=== PATIENT | male | born 1960 | race Two or more races ===

== ENCOUNTER 2017-05-29 03:28 | Inpatient (IN) | payer MEDICAID, OTHER ==
[~2017-05-29] VITALS: Ht 167.6 cm; Wt 58.5 kg
--- NOTE | 2017-05-29 03:38 | NUR ---
PT [facility]IBA#81 FROM [facility], PT PER EMS HAD LOW O2 SATS X 1 DAY. PT ABLE TO MOUTH NEEDS / NOD TO YES AND NO QUESTIONS. RR EVEN AND UNLABORED. NO SOB NOTED. PT CONNECTED TO VENT WITH PRESCRIBED SETTINGS: AC 18 TV 450 FI02 70% PEEP 0. PT CURRENT 02 SAT 100%. PT NOTED WITH GTUBE INTACT AND PATENT. NO S/S INFECTION AND NO RESIDUAL NOTED. PT ALSO NOTED CONTRACTED WITH UPPER AND LOWER EXTEMITIES. DEFORMITY NOTED ON RIGHT WRIST. WOUNDS NOTED TO SACRUM AND LOWER BACK. PT NOTED WITH LA NENA PICC LINE COVERED WITH TEGADERM. CN AWARE. PT GOWNED AND PLACED ON MONITOR. DR KUMAR AT BEDSIDE FOR EVAL.
[2017-05-29] MEDS ORDERED: ALBUTEROL FS 2.5 MG/3 ML VIAL.NEB ONE (03:47)
[2017-05-29] MEDS ORDERED: IPRATROPIUM NEB FS 0.5 MG/2.5 ML AMPUL.NEB ONE (03:47)
[2017-05-29] MEDS ORDERED: ACETAMINOPHEN 650 MG/SUPP.RECT RC ONE ×2 (03:53→04:00)
[2017-05-29] MEDS ORDERED: IPRATROPIUM NEB FS 0.5 MG/2.5 ML AMPUL.NEB NEB ONE (04:00)
[2017-05-29] MEDS ORDERED: ALBUTEROL FS 2.5 MG/0.5 ML VIAL.NEB NEB ONE (04:00)
[2017-05-29] MEDS ORDERED: IV NS 0.9% 1,000 ML BAG IV ONE (04:00)
[2017-05-29 04:06] LABS: EOSINOPHILS # (AUTO) 0.1 /CMM (0.0-0.7); EOSINOPHILS % (AUTO) 0.4 % (0.0-6.0); HEMATOCRIT 30 % (39-51); HEMOGLOBIN 9.8 g/dL (13.5-17.5); LYMPHOCYTES # (AUTO) 0.8 /CMM (0.8-4.8); LYMPHOCYTES % (AUTO) 3.9 % (20.0-44.0); MEAN CORPUSCULAR HEMOGLOBIN 27 PG (26.0-33.0); MEAN CORPUSCULAR HGB CONC 32 g/dl (31.0-36.0); MEAN CORPUSCULAR VOLUME 84 fL (80-96); MONOCYTES # (AUTO) 0.9 /CMM (0.1-1.30); MONOCYTES % (AUTO) 4.3 % (2.0-12.0); NEUTROPHILS # (AUTO) 19.1 /CMM (1.8-8.9); NEUTROPHILS % (AUTO) 91.4 % (43.0-81.0); PLATELET COUNT (AUTO) 309 /CMM (150-450); RDW COEFFICIENT OF VARIATION 18.6 (11.5-15.0); RED BLOOD CELL COUNT(AUTO) 3.61 MIL/uL (4.5-6.0); WHITE BLOOD COUNT (AUTO) 20.9 K/uL (4.3-11.0)
--- NOTE | 2017-05-29 04:06 | NUR ---
RT AT BEDSIDE FOR BREATHING TX.
--- NOTE | 2017-05-29 04:10 | NUR ---
RADIOLOGY AT BEDSIDE FOR CXR
[2017-05-29 04:16] LABS: CALCIUM, SERUM 8.4 mg/dL (8.5-10.1); CARBON DIOXIDE 29 mmol/L (21-32); CHLORIDE 111 mmol/L (98-107); GLUCOSE 139 mg/dL (74-106); POTASSIUM 3.6 mmol/L (3.5-5.1); SODIUM SERUM 145 mmol/L (136-145); UREA NITROGEN, BLOOD 20 mg/dL (7-18)
[2017-05-29 04:24] LABS: TROPONIN I < 0.017 ng/mL (0.00-0.056)
[2017-05-29 04:27] LABS: ABG BASE EXCESS -0.2 mmol/L; ABG OXYGEN SATURATION 98.8 % (92.0-98.5); ABG PCO2 60.3 mmHg (35.0-45.0); ABG PH 7.274 (7.350-7.450); AaDO2 213.3 mmHg; COHb 0.3 % (0.5-1.5); MetHb 0.6 % (0.0-1.5); O2Hb 97.9 % (94.0-97.0); SITE, ABG Right Radial; VENT MODE, BG ac 18 450 70% +0
[2017-05-29 04:29] LABS: ALANINE AMINOTRANSFERASE 23 U/L (12-78); ALBUMIN 1.7 g/dL (3.4-5.0); ALKALINE PHOSPHATASE 93 U/L (46-116); ASPARTATE AMINOTRANSFERASE 17 U/L (15-37); B-TYPE NATRIURETIC PEPTIDE 1193 PG/ML (0-125); BILIRUBIN,DIRECT 0.1 mg/dL (0.0-0.2); BILIRUBIN,TOTAL 0.3 mg/dL (0.2-1.0); TOTAL PROTEIN, SERUM 7.1 g/dL (6.4-8.2)
[2017-05-29 04:32] VITALS: BP 115/73
--- NOTE | 2017-05-29 04:34 | NUR ---
RUIZ CATH 16FR PLACED PER MD ORDER. URINE COLLECTED. CALLED LAB FOR WEBBING SUPERVISOR
--- NOTE | 2017-05-29 04:35 | NUR ---
PT REC'D TRACHED ON NOTED [facility] VENT SETTINGS. SOB AND RESP DISTRESS NOTED.. SX LARGE WHITE SECRETIONS. TRACH IS MIDLINE AND SECURED. VENT PLUGGED INTO RED OUTLET. AMBU BAG BEDSIDE. ALARMS ARE SET AND AUDIBLE. WILL CONTINUE TO MONITOR. Addendum: 05/29/17 at 0609 by ORVILLE CONTRERAS RT Amended: Links added.
--- NOTE | 2017-05-29 04:40 | NUR ---
INCREASED RR 22, INCREASED FIO2 40% PER DR KUMAR Addendum: 05/29/17 at 0440 by ORVILLE CONTRERAS RT Amended: Links added.
--- NOTE | 2017-05-29 04:40 | NUR ---
DR. KUMAR MADE AWARE OF CURRENT BP. IVF TRANSFUSING.
[2017-05-29] MEDS ORDERED: AZTREONAM 1 G VIAL ONE (04:46)
[2017-05-29 04:53] LABS: INR 1.09 (0.87-1.13)
[2017-05-29] MEDS ORDERED: AZTREONAM 1 G in IV NS 0.9% 100 ML IV ONE (05:00)
[2017-05-29] MEDS ORDERED: LEVOFLOXACIN 750 MG /D5W 150ML PIGGYBACK IV ONE (05:00)
--- NOTE | 2017-05-29 05:01 | NUR ---
DR. KUMAR SPOKE TO HAYDE RUTHERFORD REGARDING RESULTS
[2017-05-29 05:06] LABS: LYMPHOCYTES % (MANUAL) 4 % (16-48); MONOCYTES % (MANUAL) 2 % (0-11.0); NEUTROPHILS % (MANUAL) 94 (42-76)
--- NOTE | 2017-05-29 05:07 | NUR ---
PT ASSIGNED TO TELE 112
[2017-05-29 05:10] LABS: APPEARANCE,URINE CLOUDY (CLEAR); BILIRUBIN,URINE NEGATIVE (NEGATIVE); BLOOD, URINE 3+ Ery/uL (NEGATIVE); COLOR,URINE YELLOW (YELLOW); KETONES,URINE NEGATIVE (NEGATIVE); LEUKOCYTE ESTERASE ,URINE 2+ (NEGATIVE); NITRITE, URINE NEGATIVE (NEGATIVE); PH,URINE 6.5 (5.0-8.0); PROTEIN,URINE 2+ mg/dl (NEGATIVE); UGLUCOSE NEGATIVE (NEGATIVE); UROBILINOGEN,URINE 0.2 EU/dL (0.2)
--- NOTE | 2017-05-29 05:14 | NUR ---
REPORT GIVEN TO ALFONSO ROBLES FOR NADIA. ENDORSED LEVAQUIN IVPB.
[2017-05-29] MEDS ORDERED: LEVOFLOXACIN 750 MG /D5W 150ML 150 ML IV ONE (05:16)
[2017-05-29] MEDS ORDERED: MAGN400O21 PO (05:21)
[2017-05-29] MEDS ORDERED: GABA-534 PO (05:21)
[2017-05-29] MEDS ORDERED: PANT40TA2 GT (05:21)
[2017-05-29] MEDS ORDERED: AMIK250V13 IJ (05:21)
[2017-05-29] MEDS ORDERED: BACL10TA GT (05:21)
[2017-05-29] MEDS ORDERED: MIDO5TAB PO (05:21)
[2017-05-29] MEDS ORDERED: POLY17PO4 GT (05:21)
[2017-05-29] MEDS ORDERED: TRAZ-144 GT (05:21)
[2017-05-29] MEDS ORDERED: BALS60OI TP (05:21)
[2017-05-29] MEDS ORDERED: HALO2TAB GT (05:21)
[2017-05-29] MEDS ORDERED: ASCO500T8 GT (05:21)
--- NOTE | 2017-05-29 05:27 | NUR ---
PT TRANSFERRED PER ACLS PROTOCOL.
[2017-05-29] MEDS ORDERED: MAGNESIUM HYDROXIDE 30 ML UDC PO PRN (05:30)
[2017-05-29] MEDS ORDERED: MAG HYDROX/AL HYDROX/SIMETH 30 ML UDC PO PRN (05:30)
[2017-05-29] MEDS ORDERED: Z GUARD REMEDY 2 OZ OINT TP PRN (05:30)
[2017-05-29 05:39] LABS: BACTERIA,URINE Few /HPF (None Seen); RBC,URINE 21-50 /HPF (0-2); SQUAMOUS EPITHELIAL CELL,UR Moderate /HPF (None Seen); WBC,URINE 21-50 /HPF (0-3)
--- NOTE | 2017-05-29 05:45 | NUR ---
SENIOR CLINICAL RESEARCH SCIENTIST NOTES RECEIVED PATIENT FROM ER VIA [facility], TRANSFERRED TO BED, TOLERATED WELL. PATIENT IS AWAKE, ALERT AND ORIENTED X1-2, NONVERBAL, ABLE TO NOD YES/NO. NOTED WITH DORA MARQUEZ #6 ON MECHANICAL VENT AT PRESCRIBED SETTINGS, TOLERATING WELL, SPO2 WNL, FREE FROM ANY S/S OF RESPIRATORY DISTRESS AT THIS TIME. GT PATENT AND INTACT, FLUSHED WITH 30 ML WATER. NOTED WITH LA NENA PICC, PRESENT SILK SCREEN PRINTING RACKER @ [facility], DRESSING CHANGED, ALL PORTYS FLUSHED AND NOTED WITH GOOD VENOUS RETURN. ALL SKIN/WOUND ISSUES PHOTGRAPHED AND DOCUMENTED PER PROTOCOL. WILL CONTINUE TO CLOSELY MONITOR THE PATIENT, AND ADMINISTER ALL DUE MEDS.
[2017-05-29 05:48] VITALS: BP 94/66
[2017-05-29] MEDS ORDERED: D5W IV ONE (06:00)
[2017-05-29] MEDS ORDERED: VANCOMYCIN IV ONE (06:00)
[2017-05-29] MEDS: IV NS 0.9% 1,000 ML IV PRN ×2 (06:14→23:12)
[2017-05-29] MEDS: HYDROCODONE/APAP 5/325MG 1 EACH TABLET PO PRN (06:31)
--- NOTE | 2017-05-29 07:00 | NUR ---
RN NOTES PATIENT RESTING IN BED, CONTINUES ON MECHANICAL VENT, WILL ENDORSE THE PATIENT TO THE AM SHIFT NURSE FOR NADIA
--- NOTE | 2017-05-29 07:22 | NUR ---
PT RECEIVED ON VENT SUPPORT VIA SHILEY TRACH SIZE #6DCT WITH BELLOW SETTINGS: AC 22 VT 450ML LGM164% NO PEEP BREATH SOUNDS COURSE RHONCHI BILATERAL. [facility] VENT IS PLUGGE INTO RED OUTLET WITH ALARMS ON AND AUDIBLE. CONSTANTINE @ HOB. Addendum: 05/29/17 at 0724 by EKATERINA LYNN RT Amended: Links added.
[2017-05-29] MEDS ORDERED: FEE PK DOSING 1 MIN EA MC ONE (07:31)
[2017-05-29 08:00] VITALS: BP 94/59
[2017-05-29] MEDS ORDERED: VANCOMYCIN 1 GM in IV D5W 250 ML IV SCH (08:00)
--- NOTE | 2017-05-29 08:40 | NUR ---
WOUND CARE CONSULT: PT PRESENTS WITH MULTIPLE WOUNDS PRESENT ON ADMISSION INCLUDING RT HIP UNSTAGEABLE ULCER, MIDBACK AND SACRAL STAGE 4 ULCERS. RT MEDIAL FOOT AND GREAT TOE OPEN WOUNDS, ALL PRESENT ON ADMISSION. PT HAS MULTIPLE SCARS INCLUDING LOWER LEGS, RT ANKLE AND LEFT DORSAL FOOT. ALL SKIN PROTECTION MEASURES IN PLACE AND DISCUSSED WITH NURSING STAFF. WOUND CARE RECOMMENDATIONS DISCUSSED WITH NURSING STAFF. WILL SEE PRN. RECOMMEND SURGICAL CONSULT. MD IN AGREEMENT WITH PLAN OF CARE. Addendum: 05/29/17 at 0842 by MARIN LEMA WNDNU Amended: Links added.
[2017-05-29] MEDS ORDERED: HYDROGEL DRESSING 90 GM TUBE TP PRN (09:00)
[2017-05-29] MEDS: HYDROGEL DRESSING 90 GM TUBE TP SCH (09:40)
--- NOTE | 2017-05-29 10:30 | NUR ---
RN KATH NOTE: CALLED AND SPOKE W/ SEVERO FROM [facility] WHERE THE PT RESIDES, AND ACCORDING TO HIM THE PATIENT DOES NOT HAVE ANY FAMILY INVOLVE ON HIS CARE. SHANITA MARMOLEJO IS A FRIEND LISTED ON THE FACESHEET.
[2017-05-29] MEDS: ALBUTEROL HALF STRENGTH 1.25 MG/3 ML VIAL.NEB NEB SCH ×5 (11:00→23:35)
[2017-05-29] MEDS: ACETYLCYSTEINE 10% SOLN 400 MG/4 ML VIAL NEB SCH ×3 (11:00→23:30)
[2017-05-29] MEDS: IPRATROPIUM NEB FS 0.5 MG/2.5 ML AMPUL.NEB NEB SCH ×4 (11:35→23:35)
--- NOTE | 2017-05-29 11:39 | NUR ---
VENT CHANGES BELLOW ORDER: VT 500 ML FIO2 30% SPO2 100% @ 30% FIO2 Addendum: 05/29/17 at 1141 by EKATERINA LYNN RT Amended: Links added.
[2017-05-29 12:00] VITALS: BP 91/66
--- NOTE | 2017-05-29 12:20 | NUR ---
1215 2ND CALL MADE TO ALFONSO LONDONO IN REGARDS TO CONSENT FOR THORACENTESIS STILL NOT SIGNED, UNABLE TO PROCEED AT THIS TIME WITH STAT THORACENTESIS THAT WAS ORDERED BY DR. HUTCHINS.
--- NOTE | 2017-05-29 12:20 | NUR ---
1115 PER ALFONSO LONDONO CONSENT NOT SIGNED. SHE WILL CONTACT ORDERING TO GET CONSENT SIGNED
--- NOTE | 2017-05-29 13:01 | NUR ---
RN KATH NOTE: VERIFIED W/ THE PATIENT THAT HE CONSENTED FOR THE ULTRASOUND GUIDED THORACENTESIS OF THE (L) LUNG. CONSENT WAS SIGNED AND WITNESSED BY 2 RN.
[2017-05-29] MEDS: AZTREONAM 2 G in IV NS 0.9% 100 ML IV SCH ×2 (13:10→21:24)
--- NOTE | 2017-05-29 13:36 | NUR ---
RN KATH NOTE: HILDA FROM RADIOLOGY DEPT. CAME AND DID THE ULTRASOUND ON THE PATIENT'S (L) LUNG. PER HILDA, SHE SPOKE W/ DR. PRATHER THAT THE PATIENT HAS LITTLE AMOUNT OF FLUID ON THE (L) LUNG. PER DR. PRATHER, HE WILL INFORM DR. HUTCHINS ABOUT IT. NO ULTRASOUND GUIDED THORACENTESIS OF THE (L) LUNG WAS DONE. PATIENT AWARE.
--- NOTE | 2017-05-29 14:54 | NUR ---
RN KATH NOTE: SPOKE WITH MAURA COBURN NP AND MADE HIM AWARE THAT THE PATIENT IS CURRENTLY NPO AT THIS TIME. PER GAS ENGINEER, OK TO RESUME THE PREVIOUS GT FEEDING AT THE OUTSIDE FACILITY (ISOSOURCE FORMULA), BUT AWAITING FOR THE DIETITIAN TO CALL BACK FOR THE EQUIVALENT FORMULA FOR THE PATIENT. MAURA MADE AWARE.
[2017-05-29] MEDS: HYDROCODONE/APAP 10/325MG 1 EA TABLET GT PRN ×2 (15:17→23:06)
[2017-05-29] MEDS ORDERED: LIDOCAINE 2% 20 ML MDV TP ONE (15:30)
[2017-05-29 16:00] VITALS: BP 92/56
--- NOTE | 2017-05-29 16:00 | NUR ---
RN KATH NOTE: PATIENT GAVE VERBAL CONSENT FOR THE WOUND DEBRIDEMENT. WITNESSED BY 2 RN AND SIGNED THE CONSENT.
[2017-05-29] MEDS: VANCOMYCIN 0.75 GM in IV NS 0.9% 250 ML IV SCH ×2 (16:29→23:06)
--- NOTE | 2017-05-29 18:22 | NUR ---
RN KATH NOTE: PER PHARMACY, THE EQUIVALENT FOR ISOSOURCE IS FIBERSOURCE. MAURA MANAGER CCU WAS AWARE AND GAVE ORDER TO START FIBERSOURCE @60CC/HR CONTINUOUS.
[2017-05-29] MEDS: FIBERSOURCE HN 1,000 ML BOTTLE GT PRN (18:41)
--- NOTE | 2017-05-29 19:52 | NUR ---
RN KATH NOTE: PATIENT IN BED, AWAKE, NODS HIS HEAD WHEN ANSWERING. INTERMITTENTLY SPEAK WELL. BUT MOST OF THE TIME NONVERBAL. DENIED PAIN. ON VENT-TRACH DEPENDENT. SATURATING 96%. WOUND TREATMENT DONE. RUIZ CATHETER REMAINED IN PLACED, PATENT AND DRAINING YELLOW URINE TO GRAVITY. (R) UA PICC LINE W/ 2 LUMENS AND (L) WRIST IV LINE REMAINED INTACT AND PATENT. GT FEEDING OF FIBERSOURCE @60CC/HR RUNNING AND TOLERATING IT. REPORT GIVEN TO PM SHIFT NURSE FOR CONTINUITY OF CARE.
[2017-05-29 20:00] VITALS: BP 96/58
--- NOTE | 2017-05-29 20:00 | NUR ---
RN INITIAL NOTE: RECEIVED PATIENT IN BED, AWAKE, NODS HIS HEAD WHEN ANSWERING. INTERMITTENTLY SPEAK WELL. BUT MOST OF THE TIME NONVERBAL. DENIED PAIN. ON VENT-TRACH DEPENDENT. SATURATING 96%. WOUND TREATMENT DONE. RUIZ CATHETER REMAINED IN PLACED, PATENT AND DRAINING YELLOW URINE TO GRAVITY. (R) UA PICC LINE W/ 2 LUMENS AND (L) WRIST IV LINE REMAINED INTACT AND PATENT. GT FEEDING OF FIBERSOURCE @60CC/HR RUNNING AND TOLERATING WELL. WILL CONT TO MONITOR.
[2017-05-30] VITALS: BP_SYST 87; BP_SYST 88; BP_DIAS 57; BP_DIAS 59
[2017-05-30] MEDS: IPRATROPIUM NEB FS 0.5 MG/2.5 ML AMPUL.NEB NEB SCH ×6 (03:35→23:48)
[2017-05-30] MEDS: ALBUTEROL HALF STRENGTH 1.25 MG/3 ML VIAL.NEB NEB SCH ×6 (03:35→23:48)
[2017-05-30 04:00] VITALS: BP 92/61
[2017-05-30] MEDS: AZTREONAM 2 G in IV NS 0.9% 100 ML IV SCH ×3 (04:52→20:34)
[2017-05-30] MEDS: LEVOFLOXACIN 750 MG /D5W 150ML 750 MG in PREMIX 1 EA IV SCH (05:00)
[2017-05-30] MEDS: FIBERSOURCE HN 1,000 ML BOTTLE GT PRN (05:23)
[2017-05-30] MEDS: HYDROCODONE/APAP 10/325MG 1 EA TABLET GT PRN (05:23)
--- NOTE | 2017-05-30 06:29 | NUR ---
RN CLOSING NOTE: PATIENT IN BED, AWAKE, NODS HIS HEAD WHEN ANSWERING. INTERMITTENTLY SPEAK WELL. BUT MOST OF THE TIME NONVERBAL. DENIED PAIN. ON VENT-TRACH DEPENDENT. SATURATING 96%. WOUND TREATMENT DONE. RUIZ CATHETER REMAINED IN PLACED, PATENT AND DRAINING YELLOW URINE TO GRAVITY. (R) UA PICC LINE W/ 2 LUMENS AND (L) WRIST IV LINE REMAINED INTACT AND PATENT. GT FEEDING OF FIBERSOURCE @60CC/HR RUNNING AND TOLERATING WELL. WILL CONT TO MONITOR.
[2017-05-30] MEDS: ACETYLCYSTEINE 10% SOLN 400 MG/4 ML VIAL NEB SCH ×3 (07:35→23:48)
--- NOTE | 2017-05-30 07:43 | NUR ---
KATH RN NOTE: PATIENT IN BED, AWAKE, NODS HIS HEAD WHEN ANSWERING.L. BUT MOST OF THE TIME NONVERBAL. DENIED PAIN. ON VENT-TRACH DEPENDENT. AMBU BAG AT HOB SATURATING 96%.DONE. RUIZ CATHETER PATENT AND DRAINING YELLOW URINE TO GRAVITY. (R) UA PICC LINE REMAINED INTACT AND PATENT. GT FEEDING OF FIBERSOURCE @60CC/HR RUNNING AND TOLERATING WELL. WILL CONT TO MONITOR. Addendum: 05/30/17 at 0756 by FARZANA ARROYO RN RT AT BEDSIDE , REFUSED BREATHING TX WILL NOTIFIED TO DR HUTCHINS
[2017-05-30 07:47] LABS: BASOPHILS % (AUTO) 0.3 % (0.0-2.0); EOSINOPHILS # (AUTO) 0.2 /CMM (0.0-0.7); EOSINOPHILS % (AUTO) 2.1 % (0.0-6.0); HEMATOCRIT 24 % (39-51); HEMOGLOBIN 7.7 g/dL (13.5-17.5); LYMPHOCYTES # (AUTO) 1.2 /CMM (0.8-4.8); LYMPHOCYTES % (AUTO) 12.6 % (20.0-44.0); MEAN CORPUSCULAR HEMOGLOBIN 27 PG (26.0-33.0); MEAN CORPUSCULAR HGB CONC 32 g/dl (31.0-36.0); MEAN CORPUSCULAR VOLUME 83 fL (80-96); MONOCYTES # (AUTO) 0.8 /CMM (0.1-1.30); MONOCYTES % (AUTO) 8.9 % (2.0-12.0); NEUTROPHILS # (AUTO) 7.2 /CMM (1.8-8.9); NEUTROPHILS % (AUTO) 76.1 % (43.0-81.0); PLATELET COUNT (AUTO) 256 /CMM (150-450); RDW COEFFICIENT OF VARIATION 18.6 (11.5-15.0); RED BLOOD CELL COUNT(AUTO) 2.87 MIL/uL (4.5-6.0); WHITE BLOOD COUNT (AUTO) 9.4 K/uL (4.3-11.0)
[2017-05-30 08:00] VITALS: BP 97/64
[2017-05-30] MEDS: VANCOMYCIN 0.75 GM in IV NS 0.9% 250 ML IV SCH ×2 (08:00→15:33)
[2017-05-30 08:04] LABS: CALCIUM, SERUM 7.6 mg/dL (8.5-10.1); CREATININE 0.5 mg/dL (0.6-1.3); MAGNESIUM 1.3 mg/dL (1.8-2.4); PHOSPHORUS 2.4 mg/dL (2.5-4.9); POTASSIUM 3.8 mmol/L (3.5-5.1)
[2017-05-30 08:11] LABS: THYROID STIMULATING HORMONE 3.574 uIU/mL (0.358-3.74)
[2017-05-30] MEDS: HYDROGEL DRESSING 90 GM TUBE TP SCH (08:46)
--- NOTE | 2017-05-30 08:47 | NUR ---
matheus rn note vanco level 21 will hold vancomycin, pharmacist aware
[2017-05-30 10:02] LABS: ABG BASE EXCESS 2.9 mmol/L; ABG OXYGEN SATURATION 93.5 % (92.0-98.5); ABG PCO2 44.2 mmHg (35.0-45.0); ABG PH 7.416 (7.350-7.450); ABG PO2 72.6 mmHg (75.0-100.0); AaDO2 89.4 mmHg; COHb 0.3 % (0.5-1.5); MetHb 0.6 % (0.0-1.5); O2Hb 92.7 % (94.0-97.0); PEEP,BG 0 cm H2O; SITE, ABG Left Brachial; VT, ABG 500 mL
[2017-05-30] MEDS: HYDROCODONE/APAP 5/325MG 1 EACH TABLET PO PRN ×2 (10:09→20:34)
[2017-05-30] MEDS: Magnesium 1GM/D5W 100ML PREMIX 100 ML IV SCH ×6 (12:30→18:30)
[2017-05-30 13:09] VITALS: BP 91/46
[2017-05-30] MEDS: ACETAMINOPHEN 325 MG TABLET PO PRN (13:30)
[2017-05-30] MEDS ORDERED: K PHOS NEUTRAL 250 MG TABLET PO ONE (14:00)
[2017-05-30] MEDS: LACTOBACILLUS RHAMNOSUS GG 1 EACH CAP.SPRINK GT SCH (17:02)
--- NOTE | 2017-05-30 17:07 | NUR ---
ARCHITECTURE MANAGER NOTE DR WRIGHT AT BEDSIDE DEBRIDEMENT ON SACRAL DONE ALSO PER PHARMACY OK TO GIVE VANCOMYCIN IV
[2017-05-30 17:08] VITALS: BP 90/60
[2017-05-30] MEDS ORDERED: IV NS 0.9% 500 ML IV ONE (18:30)
--- NOTE | 2017-05-30 18:40 | NUR ---
WEB SOFTWARE ENGINEER NOTE PATIENT NOTED STILL DIAPHORETIC BP 90/60 HR ON TELE MONITOR SR 86 ,SPOKE WITH DR MAURA COBURN DNP OK TO GIVEN BOLUS NS 500 ML , ORDER CARRIED OUT
[2017-05-30 20:00] VITALS: BP 87/59
--- NOTE | 2017-05-30 20:00 | NUR ---
RN INITIAL NOTE: RECEIVED PATIENT IN BED, AWAKE, NODS HIS HEAD WHEN ANSWERING. INTERMITTENTLY SPEAK WELL. BUT MOST OF THE TIME NONVERBAL. ON VENT-TRACH DEPENDENT. SATURATING 96%. WOUND TREATMENT DONE. RUIZ CATHETER REMAINED IN PLACED, PATENT AND DRAINING YELLOW URINE TO GRAVITY. (R) UA PICC LINE W/ 2 LUMENS AND (L) WRIST IV LINE REMAINED INTACT AND PATENT. GT FEEDING OF FIBERSOURCE @60CC/HR RUNNING AND TOLERATING WELL. WILL CONT TO MONITOR.
[2017-05-31] VITALS: BP 87/59
[2017-05-31] MEDS: HYDROCODONE/APAP 5/325MG 1 EACH TABLET PO PRN ×5 (02:00→21:27)
[2017-05-31] MEDS: VANCOMYCIN 0.75 GM in IV NS 0.9% 250 ML IV SCH ×2 (02:01→15:48)
[2017-05-31] MEDS: ALBUTEROL HALF STRENGTH 1.25 MG/3 ML VIAL.NEB NEB SCH ×6 (03:30→22:33)
[2017-05-31] MEDS: IPRATROPIUM NEB FS 0.5 MG/2.5 ML AMPUL.NEB NEB SCH ×6 (03:30→22:33)
[2017-05-31 04:00] VITALS: BP 84/54
[2017-05-31] MEDS: AZTREONAM 2 G in IV NS 0.9% 100 ML IV SCH ×3 (05:16→21:21)
[2017-05-31] MEDS: IV NS 0.9% 1,000 ML IV PRN ×2 (05:17→21:28)
[2017-05-31] MEDS: LEVOFLOXACIN 750 MG /D5W 150ML 750 MG in PREMIX 1 EA IV SCH (05:17)
[2017-05-31] MEDS: FIBERSOURCE HN 1,000 ML BOTTLE GT PRN (05:37)
--- NOTE | 2017-05-31 07:27 | NUR ---
RN CLOSING NOTE: PATIENT IN BED, AWAKE, NODS HIS HEAD WHEN ANSWERING. INTERMITTENTLY SPEAK WELL. BUT MOST OF THE TIME NONVERBAL. DENIED PAIN. ON VENT-TRACH DEPENDENT. SATURATING 96% RUIZ CATHETER REMAINED IN PLACED, PATENT AND DRAINING YELLOW URINE TO GRAVITY. (R) UA PICC LINE W/ 2 LUMENS. GT FEEDING OF FIBERSOURCE @60CC/HR RUNNING AND TOLERATING WELL. WILL ENDORSE TO AM RN.
[2017-05-31] MEDS: ACETYLCYSTEINE 10% SOLN 400 MG/4 ML VIAL NEB SCH ×3 (07:35→22:33)
--- NOTE | 2017-05-31 07:58 | NUR ---
RN NOTE (INITIAL) PATIENT RECEIVED ALERT AWAKE ORIENTED X 2. ON VENT-TRAC, SETTINGS TOLERATING WELL. NO BREATHING DIFFICULTY NOTED. ABLE TO MAKE NEEDS KNOWN. ON TELE MONITOR SINUS RHYTHM. DENIES DISCOMFORT. RIGHT UPPER ARM PICC LINE INTACT, RUNNING WITH IV FLUIDS. ABLE TO FLUSH WITHOUT DIFFICULTY. TUBE -FEEDING RUNNING TOLERATING WELL. ASPIRATION PRECAUTIONS/SAFETY MEASURES OBSERVED. CALL LIGHT WITHIN REACH. WILL CONTINUE TO MONITOR.
[2017-05-31 08:00] VITALS: BP 90/60
[2017-05-31 08:26] LABS: CALCIUM, SERUM 7.8 mg/dL (8.5-10.1); CREATININE 0.5 mg/dL (0.6-1.3); MAGNESIUM 1.7 mg/dL (1.8-2.4); POTASSIUM 4.4 mmol/L (3.5-5.1)
[2017-05-31] MEDS: LACTOBACILLUS RHAMNOSUS GG 1 EACH CAP.SPRINK GT SCH ×2 (08:46→17:04)
[2017-05-31] MEDS: HYDROGEL DRESSING 90 GM TUBE TP SCH (08:46)
[2017-05-31 12:00] VITALS: BP 88/63
[2017-05-31] MEDS: Magnesium 1GM/D5W 100ML PREMIX 100 ML IV SCH ×2 (13:31→14:33)
[2017-05-31 16:00] VITALS: BP 92/71
[2017-05-31 20:00] VITALS: BP 94/58
--- NOTE | 2017-05-31 20:00 | NUR ---
RN INITIAL NOTE: RECEIVED PATIENT IN BED, AWAKE, NODS HIS HEAD WHEN ANSWERING. INTERMITTENTLY SPEAK WELL. BUT MOST OF THE TIME NONVERBAL. ON VENT-TRACH DEPENDENT. SATURATING 96%. RUIZ CATHETER REMAINED IN PLACED, PATENT AND DRAINING YELLOW URINE TO GRAVITY. (R) UA PICC LINE W/ 2 LUMENS AND (L) WRIST IV LINE REMAINED INTACT AND PATENT. GT FEEDING OF FIBERSOURCE @60CC/HR RUNNING AND TOLERATING WELL. WILL CONT TO MONITOR.
[2017-06-01] VITALS: BP 114/66
[2017-06-01] MEDS: HYDROCODONE/APAP 5/325MG 1 EACH TABLET PO PRN ×2 (01:41→05:44)
[2017-06-01] MEDS: VANCOMYCIN 0.75 GM in IV NS 0.9% 250 ML IV SCH ×2 (03:08→15:24)
[2017-06-01] MEDS: ONDANSETRON HCL/PF 4 MG/2 ML VIAL IVP PRN ×2 (03:16→20:18)
[2017-06-01] MEDS: IPRATROPIUM NEB FS 0.5 MG/2.5 ML AMPUL.NEB NEB SCH ×6 (03:27→22:53)
[2017-06-01] MEDS: ALBUTEROL HALF STRENGTH 1.25 MG/3 ML VIAL.NEB NEB SCH ×6 (03:27→22:53)
[2017-06-01 04:00] VITALS: BP 93/63
[2017-06-01] MEDS: AZTREONAM 2 G in IV NS 0.9% 100 ML IV SCH ×3 (04:48→21:22)
[2017-06-01] MEDS: LEVOFLOXACIN 750 MG /D5W 150ML 750 MG in PREMIX 1 EA IV SCH (05:08)
[2017-06-01] MEDS: FIBERSOURCE HN 1,000 ML BOTTLE GT PRN (05:09)
--- NOTE | 2017-06-01 06:46 | NUR ---
RN CLOSING NOTE: NO SIGNIFICANT CHANGE IN PTS CONDITION OVER NIGHT. PATIENT IN BED, AWAKE, MOUTHING WORDS. COMPLAINS OF PAIN 10/10, PAIN MEDICATION GIVEN Q4H. ON VENT-TRACH DEPENDENT. SATURATING 96% RUIZ CATHETER REMAINED IN PLACED, PATENT AND DRAINING YELLOW URINE TO GRAVITY. (R) UA PICC LINE W/ 3 LUMENS. GT FEEDING OF FIBERSOURCE @60CC/HR RUNNING. ONE EMESIS OVER NIGHT. WILL ENDORSE TO AM RN.
[2017-06-01] MEDS: ACETYLCYSTEINE 10% SOLN 400 MG/4 ML VIAL NEB SCH ×3 (07:35→22:52)
[2017-06-01 08:00] VITALS: BP 85/57
--- NOTE | 2017-06-01 08:00 | NUR ---
KATH RN AM NOTE: RECEIVED PATIENT IN BED, AWAKE, NODS HIS HEAD WHEN ANSWERING. INTERMITTENTLY SPEAK WELL. BUT MOST OF THE TIME NONVERBAL. DENIED PAIN. ON VENT-TRACH DEPENDENT. SATURATING 96%. WOUND TREATMENT DONE. RUIZ CATHETER REMAINED IN PLACED, PATENT AND DRAINING YELLOW URINE TO GRAVITY. (R) UA PICC LINE W/ 2 LUMENS AND (L) WRIST IV LINE REMAINED INTACT AND PATENT. GT FEEDING OF FIBERSOURCE @60CC/HR RUNNING AND TOLERATING WELL.HOB KEPT ELEVATED. WILL CONT TO MONITOR.
[2017-06-01 08:29] LABS: EOSINOPHILS # (AUTO) 0.1 /CMM (0.0-0.7); EOSINOPHILS % (AUTO) 0.8 % (0.0-6.0); HEMATOCRIT 21 % (39-51); HEMOGLOBIN 7.2 g/dL (13.5-17.5); LYMPHOCYTES # (AUTO) 0.9 /CMM (0.8-4.8); LYMPHOCYTES % (AUTO) 5.3 % (20.0-44.0); MEAN CORPUSCULAR HEMOGLOBIN 28 PG (26.0-33.0); MEAN CORPUSCULAR HGB CONC 34 g/dl (31.0-36.0); MEAN CORPUSCULAR VOLUME 83 fL (80-96); MONOCYTES # (AUTO) 0.8 /CMM (0.1-1.30); MONOCYTES % (AUTO) 4.6 % (2.0-12.0); NEUTROPHILS # (AUTO) 15.5 /CMM (1.8-8.9); NEUTROPHILS % (AUTO) 89.3 % (43.0-81.0); PLATELET COUNT (AUTO) 292 /CMM (150-450); RDW COEFFICIENT OF VARIATION 18.7 (11.5-15.0); RED BLOOD CELL COUNT(AUTO) 2.59 MIL/uL (4.5-6.0); WHITE BLOOD COUNT (AUTO) 17.4 K/uL (4.3-11.0)
[2017-06-01 08:56] LABS: CALCIUM, SERUM 7.5 mg/dL (8.5-10.1); CREATININE 0.6 mg/dL (0.6-1.3); MAGNESIUM 1.8 mg/dL (1.8-2.4); POTASSIUM 4.1 mmol/L (3.5-5.1)
[2017-06-01] MEDS: LACTOBACILLUS RHAMNOSUS GG 1 EACH CAP.SPRINK GT SCH ×2 (09:01→17:41)
[2017-06-01] MEDS: HYDROGEL DRESSING 90 GM TUBE TP SCH (09:02)
[2017-06-01 12:00] VITALS: BP 98/59
[2017-06-01 16:00] VITALS: BP 109/61
[2017-06-01] MEDS: IV NS 0.9% 1,000 ML IV PRN (17:49)
--- NOTE | 2017-06-01 18:00 | NUR ---
PT RESTING IN BED WITH HOB ELEVATED AND GT FEEDING TOLERATED WELL WITH NO RESIDUALS AND NO VOMITING EPISODE.TURNED EVERY TWO HRS.
--- NOTE | 2017-06-01 19:21 | NUR ---
RCVD PT ON VENT WITH NOTED SETTINGS. BREATHING TX GIVEN PER MD'S ORDER, NO ADVERSE REACTION NOTED. SUCTIONED MODERATE AMOUNT OF YELLOWISH ALEJANDRE THICK SECRETIONS. VENT PLUGGED INTO RED OUTLET, VENT ALARM WORKING AND AUDIBLE. AMBU BAG AT BEDSIDE, WILL CONTINUE TO MONITOR THE PT.
--- NOTE | 2017-06-01 19:57 | NUR ---
INSURANCE ACCOUNT ASSISTANT NOTES RECEIVED ON BED,NON VERBAL.ON TRACH TO VENT AC-18,TV 500,FIO2-30%,PEEP-5,SHILEY #6 TOLERATED WELL.WITH RUIZ CATH IN PLACE DRAING YELLOWISH OUTPUT.WITH RIGHT UPPER PICC LINE FOR MEDS AND IV'S.DRESSING TO HIP AND SACRAL AREA INTACT AND DRY.WITH GT FEEDING OF FIBERSOURCE AT 60ML/HRRATE,TOLERATED WELL.NO RESIDUAL NOTED.REPOSITION PER PROTOCOL.WILL CONTINUE TO MONITOR STATUS.
[2017-06-01 20:00] VITALS: BP 118/58
--- NOTE | 2017-06-01 20:18 | NUR ---
BASKETBALL COMMENTATOR NOTES C/O VOMITING,ZOFRAN 4MG IV ADMINISTERED ORDERED.
[2017-06-01] MEDS: SULFAMETH/TRIMETH 800/160 MG 1 UDTAB TABLET PO SCH (21:22)
--- NOTE | 2017-06-01 23:47 | NUR ---
MS RN NOTES APPEARS HAVING NAUSEA,GIVEN MAALOX 30ML/GT ORDERED FOR DYSPEPSIA.
[2017-06-02] VITALS: BP 94/54
[2017-06-02] MEDS: VANCOMYCIN 0.75 GM in IV NS 0.9% 250 ML IV SCH ×2 (01:24→15:55)
[2017-06-02] MEDS: HYDROCODONE/APAP 5/325MG 1 EACH TABLET PO PRN ×2 (01:30→21:48)
--- NOTE | 2017-06-02 01:30 | NUR ---
PROJ MGR NOTES MOSOFY,ASKING FOR PAIN PILL,NORCO 5/325MG,1TAB GIVEN VIA GT.
[2017-06-02] MEDS: IPRATROPIUM NEB FS 0.5 MG/2.5 ML AMPUL.NEB NEB SCH ×6 (03:30→23:23)
[2017-06-02] MEDS: ALBUTEROL HALF STRENGTH 1.25 MG/3 ML VIAL.NEB NEB SCH ×6 (03:30→23:23)
[2017-06-02 03:39] VITALS: BP 96/67
[2017-06-02] MEDS: ONDANSETRON HCL/PF 4 MG/2 ML VIAL IVP PRN ×3 (04:33→21:27)
--- NOTE | 2017-06-02 04:33 | NUR ---
RN CVOR NOTES VOMITED GREENISH VOMITUS,MODERATE AMOUNT,ZOFRAN 4MG IV GIVEN.KEPT HOB ELEVATED FOR ASPIRATION PRECAUTION
[2017-06-02] MEDS: AZTREONAM 2 G in IV NS 0.9% 100 ML IV SCH ×3 (04:37→21:24)
--- NOTE | 2017-06-02 04:45 | NUR ---
BYPRODUCTS SUPERVISOR NOTES GT FEEDING HELD AT THIS TIME DUE TO VOMITING.KEPT ON UPRIGHT POSITION.IV ABX TOLERATED WELL.NOT IN ANY FORM OF DISTRESS.WILL ENDORSE TODAY NURSE FOR NADIA.
--- NOTE | 2017-06-02 07:00 | NUR ---
PRODUCT MARKETING MANAGER INITIAL NOTE REPORT RECEIVED AT THE BEDSIDE. PATIENT IS SITTING IN UPRIGHT POSITION AND FEEDING IS TURNED OFF. PER REPORT, PT HAS BEEN VOMITING. NO CURRENT SOB OR DISTRESS. PT IS REQUESTING NOT TO TURN ON FEEDING AGAIN AT THIS TIME. BED IN A LOW POSITION, CALL LIGHT WITHIN REACH. HEART RATE SINUS TACH AT 101.
[2017-06-02] MEDS: ACETYLCYSTEINE 10% SOLN 400 MG/4 ML VIAL NEB SCH ×3 (07:19→23:30)
[2017-06-02 07:31] LABS: BASOPHILS % (AUTO) 0.1 % (0.0-2.0); EOSINOPHILS # (AUTO) 0.1 /CMM (0.0-0.7); EOSINOPHILS % (AUTO) 0.9 % (0.0-6.0); HEMATOCRIT 26 % (39-51); HEMOGLOBIN 8.5 g/dL (13.5-17.5); LYMPHOCYTES # (AUTO) 0.9 /CMM (0.8-4.8); LYMPHOCYTES % (AUTO) 5.2 % (20.0-44.0); MEAN CORPUSCULAR HEMOGLOBIN 27 PG (26.0-33.0); MEAN CORPUSCULAR HGB CONC 33 g/dl (31.0-36.0); MEAN CORPUSCULAR VOLUME 83 fL (80-96); MONOCYTES # (AUTO) 1.1 /CMM (0.1-1.30); MONOCYTES % (AUTO) 6.5 % (2.0-12.0); NEUTROPHILS # (AUTO) 14.6 /CMM (1.8-8.9); NEUTROPHILS % (AUTO) 87.3 % (43.0-81.0); PLATELET COUNT (AUTO) 337 /CMM (150-450); WHITE BLOOD COUNT (AUTO) 16.8 K/uL (4.3-11.0)
[2017-06-02 07:49] LABS: CALCIUM, SERUM 7.5 mg/dL (8.5-10.1); CREATININE 0.6 mg/dL (0.6-1.3); MAGNESIUM 1.6 mg/dL (1.8-2.4); PHOSPHORUS 3.4 mg/dL (2.5-4.9)
[2017-06-02 08:00] VITALS: BP 86/50
[2017-06-02] MEDS: HYDROGEL DRESSING 90 GM TUBE TP SCH (08:21)
[2017-06-02] MEDS: LACTOBACILLUS RHAMNOSUS GG 1 EACH CAP.SPRINK GT SCH ×2 (08:21→16:54)
[2017-06-02] MEDS: SULFAMETH/TRIMETH 800/160 MG 1 UDTAB TABLET PO SCH (08:21)
--- NOTE | 2017-06-02 09:37 | NUR ---
RECEIVED A CALL FROM DR CLAIRE IN RADIOLOGY. STATES HE IS WORRIED ABOUT A PNEUMOTHORAX IN THIS PT. ASKS TO REPEAT THE CHEST XRAY. ORDER PLACED.
[2017-06-02] MEDS: Magnesium 1GM/D5W 100ML PREMIX 100 ML IV SCH ×2 (11:55→13:22)
[2017-06-02] MEDS: HYDROCODONE/APAP 10/325MG 1 EA TABLET GT PRN (11:55)
[2017-06-02 12:00] VITALS: BP 95/70
[2017-06-02] MEDS: IV NS 0.9% 1,000 ML IV PRN (12:01)
--- NOTE | 2017-06-02 14:50 | NUR ---
CALLED PHARMACY AND SPOKE TO DORINDA ABOUT PT MISSING IV VANCO. DORINDA STATES SHE IS SENDING THE MEDICATION.
--- NOTE | 2017-06-02 15:15 | NUR ---
PT STILL VOMITING AFTER GIVING ZOFRAN. INFORMED DR COBURN. STATES TO HOLD FEEDING FOR 5 HOURS AND THEN RESUME. NO NEW ORDERS FOR N/V MEDICATIONS.
--- NOTE | 2017-06-02 15:35 | NUR ---
CALLED PHARMACY PT [facility] IS STILL NOT ON FLOOR. DORINDA STATES THE TECH IS OUT DELIVERING THE MEDICATION.
[2017-06-02 16:00] VITALS: BP 88/59
[2017-06-02 20:00] VITALS: BP 99/71
--- NOTE | 2017-06-02 20:34 | NUR ---
CREATIVE CONSULTANT NOTES, RECEIVED PATIENT IN BED ALERT ALERT AND ORIENTED, ABLE TO LET NEEDS KNOW, MOUTH WORDS, ON VENT SETTINGS, NO SOB/ACUTE DISTRESS NOTED AT THIS TIME, NOTED DRY AND CLEAN, BED IN LOWEST POSITION, LA NENA MIDLINE INTACT AND PATENT, IVF RUNNING WELL AND PATIENT TOLERATED WELL, NO S/S OF INFILTRATION NOTED AT THIS TIME, GTF ON HOLD AT THIS TIME DUE TO EPISODES OF VOMITING, NO EPISODES NOTED AT THIS TIME, WILL RESTART ORDERED AND WILL CONTINUE TO MONITOR AND ADMINISTER ZOFRAN ORDERED, F/C IN PLACE DRAINING YELLOW URINE, NO HEMATURIA NOTED AT THIS TIME, CALL LIGHT W/I REACH, WILL CONTINUE TO MONITOR CLOSELY.
--- NOTE | 2017-06-02 22:05 | NUR ---
SPACE AND MISSILE OPERATIONS SPACELIFT NOTES, PATIENT NOTED WITH EPISODES OF GREENISH COLOR VOMITING, CALLED MD BURR FILER AND INFORMED ABOUT PATIENT CONDITION, PER MD TO DO A KUB STAT TO R/O BOWEL OBSTRUCTION, ORDER NOTED AND CARRIED OUT.
[2017-06-03] VITALS (9 sets, daily range): BP systolic 96–119; BP diastolic 56–67
--- NOTE | 2017-06-03 00:25 | NUR ---
APPLIED BEHAVIOR SCIENCE SPECIALIST NOTES, CALLED MD ER REGISTRAR AND RELAYED XR ABD AND REPLIED WITH NEW ORDER FOR LOW INTERMITTENT SUCTION AND CT SCAN W/O CONTRAST OF ABDOMEN AND PELVIS, ORDER NOTED AND CARRIED OUT.
[2017-06-03] MEDS: ONDANSETRON HCL/PF 4 MG/2 ML VIAL IVP PRN (01:03)
[2017-06-03] MEDS: VANCOMYCIN 0.75 GM in IV NS 0.9% 250 ML IV SCH ×2 (02:42→13:44)
[2017-06-03] MEDS: ALBUTEROL HALF STRENGTH 1.25 MG/3 ML VIAL.NEB NEB SCH ×6 (03:41→23:30)
[2017-06-03] MEDS: IPRATROPIUM NEB FS 0.5 MG/2.5 ML AMPUL.NEB NEB SCH ×6 (03:41→23:30)
[2017-06-03] MEDS: AZTREONAM 2 G in IV NS 0.9% 100 ML IV SCH ×3 (05:26→20:47)
[2017-06-03] MEDS: IV NS 0.9% 1,000 ML IV PRN ×2 (05:53→23:49)
--- NOTE | 2017-06-03 06:15 | NUR ---
RN CLOSING NOTED, PATIENT IN BED, ON VENT SETTINGS, SLEEPING AT THIS TIME, NO EPISODES OF VOMITING SINCE 0130 AM, ON LOW INTERMITTENT SUCTIONING, TRACHEAL SUCTIONING NEEDED FOR REMOVAL OF SECRETIONS, AWAITING FOR CT-SCAN WO CONTRAST FOR PELVIS AND ABDOMEN ORDERED, IVF INFUSING WELL AND PATIENT TOLERATED WELL, F/C DRAINING YELLOW URINE BY GRAVITY, PT DRY AND CLEAN, BED LOCKED AND IN LOWEST POSITION, CALL LIGHT W/I REACH, WILL ENDORSE TO NEXT SHIFT NURSE.
[2017-06-03] MEDS: ACETYLCYSTEINE 10% SOLN 400 MG/4 ML VIAL NEB SCH ×3 (07:35→23:29)
--- NOTE | 2017-06-03 07:50 | NUR ---
TELE/RN OPENING NOTE PATIENT IN BED IN STABLE CONDITION. A/O X 1, NON VERBAL, TRACH AND VENT DEPENDENT . TOLERATING WELL. ON TELE MONITOR NOTED WITH SINUS TACHY IN 100'S. ON LOW INTERMITTENT SUCTION VIA GTUBE SECONDARY TO PATIENT HAVING EPISODES OF VOMITING. G TUBE FEEDING ON HOLD TILL FURTHER ORDERS. ALL NEEDS ATTENDED TO. CALL LIGHT WITHIN REACH. WILL CONTINUE TO MONITOR TO ENSURE SAFETY.
[2017-06-03] MEDS: LACTOBACILLUS RHAMNOSUS GG 1 EACH CAP.SPRINK GT SCH ×2 (08:33→16:12)
[2017-06-03] MEDS: HYDROGEL DRESSING 90 GM TUBE TP SCH (08:35)
--- NOTE | 2017-06-03 09:22 | NUR ---
TRANSPORTED PT TO CT VIA VENT. NO DISTRESS NOTED DURING PROCEDURE. VENT PLUGGED INTO RED OUTLET POST TRANSPORT. NO ADVERSE EFFECTS OR SOB NOTED. Addendum: 06/03/17 at 0923 by JERMAN QUIÑONES RT Amended: Links added.
[2017-06-03 10:03] LABS: EOSINOPHILS % (AUTO) 0.1 % (0.0-6.0); HEMATOCRIT 28 % (39-51); HEMOGLOBIN 9.2 g/dL (13.5-17.5); LYMPHOCYTES # (AUTO) 0.9 /CMM (0.8-4.8); LYMPHOCYTES % (AUTO) 4.4 % (20.0-44.0); MEAN CORPUSCULAR HEMOGLOBIN 27 PG (26.0-33.0); MEAN CORPUSCULAR HGB CONC 33 g/dl (31.0-36.0); MEAN CORPUSCULAR VOLUME 82 fL (80-96); MONOCYTES # (AUTO) 1.1 /CMM (0.1-1.30); MONOCYTES % (AUTO) 5.7 % (2.0-12.0); NEUTROPHILS # (AUTO) 17.6 /CMM (1.8-8.9); NEUTROPHILS % (AUTO) 89.8 % (43.0-81.0); PLATELET COUNT (AUTO) 353 /CMM (150-450); RDW COEFFICIENT OF VARIATION 18.7 (11.5-15.0); RED BLOOD CELL COUNT(AUTO) 3.42 MIL/uL (4.5-6.0); WHITE BLOOD COUNT (AUTO) 19.6 K/uL (4.3-11.0)
[2017-06-03 10:29] LABS: CREATININE 0.7 mg/dL (0.6-1.3); MAGNESIUM 2.1 mg/dL (1.8-2.4); PHOSPHORUS 3.7 mg/dL (2.5-4.9)
--- NOTE | 2017-06-03 12:10 | NUR ---
TELE/RN SPOKE WITH DR LARSEN SPOKE WITH DR LARSEN AND MADE AWARE PATIENT NOTED WITH TEMP. OF 100.4, AFTER COOLING MEASURES NOTED 98.7. CURRENTLY G TUBE ON HOLD AND ON LOW INTERMITTENT SUCTION. RELAYED CT ABDOMEN/PELVIS RESULTS, WBC OF 19.0H. PER DR LARSEN, INCREASE IV FLUIDS TO NS @ 100MLS/HR. LACTIC ACID TODAY AND START MORPHINE 2MG IV Q 4 HR PRN FOR PAIN .
[2017-06-03] MEDS ORDERED: MORPHINE SULFATE INJ 2 MG/ML DISP.SYRIN IV PRN (12:30)
[2017-06-03] MEDS: HYDROMORPHONE INJ 0.5 MG/0.5 ML SYRINGE IV PRN (13:44)
--- NOTE | 2017-06-03 17:16 | NUR ---
TELE/RN DR LARSEN PAGED PAGED DR LARSEN TO MAKE AWARE PATIENT NOTED WITH TEMP. OF 100.1, COOLING MEASURES APPLIED, AND REQUESTING FOR TYLENOL SUPPOSITORY SECONDARY TO PATIENT G TUBE FEEDING AND MEDS ON HOLD. AWAITING FOR CALL BACK.
--- NOTE | 2017-06-03 18:30 | NUR ---
TELE/RN CLOSING NOTE PATIENT IN BED IN STABLE CONDITION. A/O X 1-2, NON VERBAL, ABLE TO MAKE SIMPLE NEEDS KNOWN VIA MOUTH WORDS. TRACH AND VENT DEPENDENT. TOLERATING WELL. ON TELE MONITOR WITH SINUS RHYTHM IN 80'S. G TUBE FEEDING ON HOLD, ON LOW INTERMITTENT SUCTION VIA G TUBE. NO SIGNS OF ACUTE DISTRESS. NO COMPLAIN OF PAIN OR DISCOMFORT. TEMP. NOTED 98.9 AFTER COOLING MEASURES. STILL WAITING FOR DR LARSEN TO RETURN CALL FOR ANY FURTHER ORDERS. ALL NEEDS ATTENDED TO. CALL LIGHT WITHIN REACH. WILL ENDORSE TO NEXT SHIFT FOR CONTINUITY OF CARE.
--- NOTE | 2017-06-03 19:30 | NUR ---
VEHICLE MAINTENANCE TECHNICIAN INITIAL NOTES, RECEIVED PATIENT IN BED, SLEEPING AT THIS TIME, ON VENT SETTINGS TOLERATED WELL, O2 SATURATION >94%, ABLE TO VERBALIZED NEEDS MOTH WORDS, GTF ON HOLD, NO EPISODES OF VOMITING AT THIS TIME, NO C/O NAUSEA, PAIN OR ANY DISCOMFORT, IVF INFUSING WELL AND PATIENT TOLERATED WELL, LA NENA PICC LINE INTACT ABND PATENT, F/C IN PLACE DRAINING YELLOW URINE PATENCY INTACT, PATIENT NOTED DRY AND CLEAN AT THIS TIME, BED LOCKED IN IN LOWEST POSITION, CALL LIGHT W/I REACH, SUCTIONING PROVIDED NEEDED, WILL CONTINUE TO MONITOR CLOSELY.
--- NOTE | 2017-06-03 19:43 | NUR ---
RCVD PT ON VENT WITH NOTED SETTINGS. BREATHING TX GIVEN PER MD'S ORDER, NO ADVERSE REACTION NOTED. SUCTIONED LARGE AMOUNT OF YELLOWISH ALEJANDRE THICK SECRETIONS. VENT PLUGGED INTO RED OUTLET, VENT ALARM WORKING AND AUDIBLE. AMBU BAG AT BEDSIDE, WILL CONTINUE TO MONITOR THE PT.
[2017-06-04] VITALS (8 sets, daily range): BP systolic 98–128; BP diastolic 56–78
[2017-06-04] MEDS: VANCOMYCIN 0.75 GM in IV NS 0.9% 250 ML IV SCH ×2 (02:42→15:52)
[2017-06-04] MEDS: ALBUTEROL HALF STRENGTH 1.25 MG/3 ML VIAL.NEB NEB SCH ×6 (03:26→23:53)
[2017-06-04] MEDS: IPRATROPIUM NEB FS 0.5 MG/2.5 ML AMPUL.NEB NEB SCH ×6 (03:26→23:53)
[2017-06-04] MEDS: AZTREONAM 2 G in IV NS 0.9% 100 ML IV SCH ×2 (05:29→14:14)
--- NOTE | 2017-06-04 06:30 | NUR ---
RN CLOSING NOTES, PATIENT SLEEPING IN BED, ON VENT SETTINGS, NO SOB/ACUTE DISTRESS, OR DISCOMFORT NOTED, NO C/O PAIN AT THIS TIME,. NO EPISODES OF VOMITING OR NAUSEA THROUGHOUT SHIFT, GTF ON HOLD AND NO MEDICATIONS ADMINISTERED VIA GT, CONTINUE ON LOW INTERMITTENT SUCTION VIA GT, IVF INFUSING WELL AND PATIENT TOLERATED WELL, LA NENA PICC LINE INTACT AND PATENT, F/C DRAINING YELLOW URINE, PATENCY INTACT, KEPT DRY AND CLEAN, ALL NEEDS PROVIDED AND ANTICIPATED, SUCTIONING PROVIDED NEEDED FOR THE REMOVAL OF SECRETIONS, BED LOCKED AND IN LOWEST POSITION, CA;LL LIGHT W/I REACH, WILL ENDORSE CONTINUITY OF CARE TO ONCOMING NURSE.
[2017-06-04 07:11] LABS: BASOPHILS % (AUTO) 0.1 % (0.0-2.0); EOSINOPHILS % (AUTO) 0.2 % (0.0-6.0); HEMATOCRIT 23 % (39-51); HEMOGLOBIN 7.6 g/dL (13.5-17.5); LYMPHOCYTES # (AUTO) 0.8 /CMM (0.8-4.8); LYMPHOCYTES % (AUTO) 4.2 % (20.0-44.0); MEAN CORPUSCULAR HEMOGLOBIN 27 PG (26.0-33.0); MEAN CORPUSCULAR HGB CONC 33 g/dl (31.0-36.0); MEAN CORPUSCULAR VOLUME 83 fL (80-96); MONOCYTES # (AUTO) 1.1 /CMM (0.1-1.30); MONOCYTES % (AUTO) 5.3 % (2.0-12.0); NEUTROPHILS # (AUTO) 17.9 /CMM (1.8-8.9); NEUTROPHILS % (AUTO) 90.2 % (43.0-81.0); PLATELET COUNT (AUTO) 290 /CMM (150-450); RDW COEFFICIENT OF VARIATION 18.3 (11.5-15.0); RED BLOOD CELL COUNT(AUTO) 2.78 MIL/uL (4.5-6.0); WHITE BLOOD COUNT (AUTO) 19.8 K/uL (4.3-11.0)
--- NOTE | 2017-06-04 07:20 | NUR ---
RN OPENING NOTES RECEIVED PATIENT IN BED,NON VERBAL.RESPIRATIONS ARE EVEN AND UNLABORED. NO ACUTE DISTRESS. VENT SUPPORT ON TRACH TO VENT AC-18,TV 500,FIO2-30%,SHILEY #6 TOLERATED WELL.WITH RUIZ CATH IN PLACE DRAINING YELLOW URINE. RIGHT UPPER PICC LINE PATENT AND INTACT GT SUCTIONING ON MEDIUM INTERMITTENT. COFFEE GROUND DRAINAGE NOTED. BED LOKCED IN THE LOWEST POSITION WITH SIDERAILS UP X2. WILL CONTINUE TO MONITOR, ASSESS AND EDUCATE PATIENT THROUGHOUT SHIFT.
[2017-06-04 07:26] LABS: CALCIUM, SERUM 7.7 mg/dL (8.5-10.1); CREATININE 0.7 mg/dL (0.6-1.3); MAGNESIUM 1.7 mg/dL (1.8-2.4); PHOSPHORUS 2.9 mg/dL (2.5-4.9); POTASSIUM 4.4 mmol/L (3.5-5.1)
[2017-06-04] MEDS: ACETYLCYSTEINE 10% SOLN 400 MG/4 ML VIAL NEB SCH ×3 (07:34→23:30)
[2017-06-04] MEDS: HYDROGEL DRESSING 90 GM TUBE TP SCH (09:44)
[2017-06-04] MEDS: LACTOBACILLUS RHAMNOSUS GG 1 EACH CAP.SPRINK GT SCH ×2 (09:44→18:28)
[2017-06-04] MEDS: Magnesium 1GM/D5W 100ML PREMIX 100 ML IV SCH ×2 (11:52→12:57)
--- NOTE | 2017-06-04 15:53 | NUR ---
MANUAL DISIMPACTION DONE WITH LARGE HARD STOOL OUTPUT,DR. ARANA NOTIFIED.
--- NOTE | 2017-06-04 18:00 | NUR ---
PT. REMAIN STABLE TRACHED PRINCESSLEY # 6 ON VENT CHANGES T/O DAY AND NO DISTRESS NOTED. B/S REMAIN RHONCHI AND SUX'D FOR LARGE AMT. YELLOWISH SECRETION. VENT ON RED OUT LET AND AMBU BAG REMAIN AT THE BEDSIDE. EXTRA TRACH AT THE BEDSIDE. Addendum: 06/04/17 at 1803 by RICHELLE MAZA RT Amended: Links added.
[2017-06-04] MEDS: METOCLOPRAMIDE HCL 10 MG/2 ML VIAL IV SCH ×2 (18:28→21:29)
[2017-06-04] MEDS: TRAZODONE 50 MG TABLET GT SCH (18:28)
[2017-06-04] MEDS: ACETAMINOPHEN 325 MG TABLET PO PRN (18:29)
--- NOTE | 2017-06-04 20:00 | NUR ---
RN CLOSING NOTES RECEIVED PATIENT IN BED,NON VERBAL.RESPIRATIONS ARE EVEN AND UNLABORED. NO ACUTE DISTRESS. VENT SUPPORT ON TRACH TO VENT AC-18,TV 500,FIO2-30%,SHILEY #6 TOLERATED WELL.WITH RUIZ CATH IN PLACE DRAINING YELLOW URINE. RIGHT UPPER PICC LINE PATENT AND INTACT GT SUCTIONING ON MEDIUM INTERMITTENT. COFFEE GROUND DRAINAGE NOTED. BED LOKCED IN THE LOWEST POSITION WITH SIDERAILS UP X2. ALL NEEDS MET ALL MEDS GIVEN APPROPRIATE. 800CC OF COFFEE GROUND SUCTION FROM GTUBE NOTED. WILL ENDORSE TO NIGHT RN FOR NADIA.
[2017-06-04] MEDS: MEROPENEM 500 MG in IV NS 0.9% 50 ML IV SCH (20:48)
[2017-06-04] MEDS: NA PHOS,M-B/NA PHOS,DI-BA 1 EA ENEMA RC SCH ×2 (21:29→22:00)
[2017-06-05] VITALS (7 sets, daily range): BP systolic 89–143; BP diastolic 48–78
[2017-06-05] MEDS: IPRATROPIUM NEB FS 0.5 MG/2.5 ML AMPUL.NEB NEB SCH ×6 (02:57→23:29)
[2017-06-05] MEDS: ALBUTEROL HALF STRENGTH 1.25 MG/3 ML VIAL.NEB NEB SCH ×8 (02:57→23:29)
[2017-06-05] MEDS: METOCLOPRAMIDE HCL 10 MG/2 ML VIAL IV SCH ×4 (03:11→20:49)
[2017-06-05] MEDS: VANCOMYCIN 0.75 GM in IV NS 0.9% 250 ML IV SCH (03:11)
[2017-06-05] MEDS: MEROPENEM 500 MG in IV NS 0.9% 50 ML IV SCH ×3 (04:37→20:49)
--- NOTE | 2017-06-05 06:30 | NUR ---
RN CLOSING NOTES, PATIENT AWAKE AT THIS TIME, ON VENT SETTINGS, ALERT AND ORIENTED , MOUTH WORDS ABLE TO COMMUNICATE NEEDS AND CONCERNS, ON VENT SETTINGS, CONT ON LOW INTERMITTENT SUCTIONING VIA GT, GTF CONTINUE ON HOLD, 2 EPISODES OF VOMITING LATE THIS MORNING, NO IVF AT THIS TIME, KEPT DRY AND CLEAN AT TALL TIMES, AND REPOSITION PROVIDED PER PROTOCOL, PICC IN LA NENA INTACT AND PATENT, F/C DRAINING YELLOW URINE, PATENCY INTACT, BED LOCKED AN DIN LOWEST POSITION, CALL LIGHT W/I REACH, WILL ENDORSE CONTINUITY OF CARE TO ONCOMING NURSE.
[2017-06-05 06:59] LABS: BASOPHILS % (AUTO) 0.1 % (0.0-2.0); EOSINOPHILS # (AUTO) 0.1 /CMM (0.0-0.7); EOSINOPHILS % (AUTO) 0.3 % (0.0-6.0); HEMATOCRIT 22 % (39-51); HEMOGLOBIN 7.3 g/dL (13.5-17.5); LYMPHOCYTES # (AUTO) 0.7 /CMM (0.8-4.8); LYMPHOCYTES % (AUTO) 3.6 % (20.0-44.0); MEAN CORPUSCULAR HEMOGLOBIN 28 PG (26.0-33.0); MEAN CORPUSCULAR HGB CONC 33 g/dl (31.0-36.0); MEAN CORPUSCULAR VOLUME 83 fL (80-96); MONOCYTES % (AUTO) 4.8 % (2.0-12.0); NEUTROPHILS # (AUTO) 18.6 /CMM (1.8-8.9); NEUTROPHILS % (AUTO) 91.2 % (43.0-81.0); PLATELET COUNT (AUTO) 408 /CMM (150-450); RDW COEFFICIENT OF VARIATION 18.8 (11.5-15.0); RED BLOOD CELL COUNT(AUTO) 2.66 MIL/uL (4.5-6.0); WHITE BLOOD COUNT (AUTO) 20.4 K/uL (4.3-11.0)
[2017-06-05] MEDS: ACETYLCYSTEINE 10% SOLN 400 MG/4 ML VIAL NEB SCH ×3 (07:26→23:27)
--- NOTE | 2017-06-05 07:26 | NUR ---
RT PT RECEIVED TRACHED ON THE VENT WITH NOTED SETTIGNS. PT IS AWAKE AND ALERT. VENT ALARMS ARE SET AND AUDIBLE WITH BVM BY BEDSIDE. SOA ENGINEER CUFF PRESSURE NOTED. VENT IS PLUGGED INTO RED OUTLET. NO RESPIRATORY DISTRESS NOTED AT THIS TIME, WILL CONTINUE TO MONITOR. Addendum: 06/05/17 at 1759 by INO PATE RT Amended: Links added.
[2017-06-05 07:35] LABS: CALCIUM, SERUM 7.9 mg/dL (8.5-10.1); CREATININE 0.7 mg/dL (0.6-1.3); MAGNESIUM 1.8 mg/dL (1.8-2.4); PHOSPHORUS 2.8 mg/dL (2.5-4.9); POTASSIUM 3.5 mmol/L (3.5-5.1)
--- NOTE | 2017-06-05 07:45 | NUR ---
RN NOTES RECEIVED PT FROM LABORATORY ANIMAL CARE VETERINARIAN, VENT/TRACH DEPENDENT, TOLERATING VENT SETTINGS NO SOB OR DISTRESS, A&0X1 ABLE TO MOUTH OF WORDS MAKE NEEDS KNOWN. RUIZ DRAINING TO GRAVITY. SR ON THE TELE LYNSEY HR 103. NO GTF, PT CURRENTLY NPO. LA NENA PICC LINE INTACT NO IVF. BED LOCKED AND IN LOWEST POSITION, CALL LIGHT WITHIN REACH, SIDE RAILS UPX3, WILL CONT TO [place].
[2017-06-05] MEDS: BACLOFEN (10 MG) 10 MG TABLET GT SCH ×3 (08:44→17:00)
[2017-06-05] MEDS: LACTOBACILLUS RHAMNOSUS GG 1 EACH CAP.SPRINK GT SCH ×2 (08:44→17:00)
[2017-06-05] MEDS: GABAPENTIN 300 MG CAPSULE PO SCH ×3 (08:45→17:00)
[2017-06-05] MEDS: HYDROGEL DRESSING 90 GM TUBE TP SCH (08:45)
[2017-06-05] MEDS: ACETAMINOPHEN 650 MG/SUPP.RECT RC PRN (14:34)
--- NOTE | 2017-06-05 15:00 | NUR ---
RN NOTES PER PHARMACY HOLD 1400 VANCO DOSE BUT GIVE 2100 DOSE.
[2017-06-05] MEDS: ONDANSETRON HCL/PF 4 MG/2 ML VIAL IVP PRN (15:35)
[2017-06-05] MEDS: TRAZODONE 50 MG TABLET GT SCH (17:26)
--- NOTE | 2017-06-05 19:30 | NUR ---
PAVING CONTRACTOR INITIAL NOTES RECEIVED PATIENT AWAKE, ALERT, ABLE TO MOUTH NEEDS. VENT DEPENDENT. NO RESPIRATORY DISTRESS NOTED. C/O SEVERE GENERALIZED PAIN. WITH GT IN PLACE, PATENT AND INTACT ON LOW INTERMITTENT SUCTION WITH DARK GREEN OUTPUT. F/C PATENT AND INTACT, DRAINING BY GRAVITY. ON TELE MONITOR ST 108. TURNED AND REPOSITIONED. HOB ELEVATED. SIDE RAILS UP AND LOCKED. BED KEPT AT LOWEST POSITION. CALL LIGHT KEPT WITHIN EASY REACH. WILL CONTINUE TO MONITOR.
[2017-06-05] MEDS: VANCOMYCIN 0.75 GM in IV D5W 250 ML IV SCH (20:47)
[2017-06-05] MEDS: HYDROMORPHONE INJ 0.5 MG/0.5 ML SYRINGE IV PRN (20:47)
[2017-06-05] MEDS ORDERED: METOCLOPRAMIDE HCL 10 MG/2 ML VIAL IV SCH (21:00)
[2017-06-05] MEDS: NA PHOS,M-B/NA PHOS,DI-BA 1 EA ENEMA RC SCH (21:42)
[2017-06-06] VITALS (8 sets, daily range): BP systolic 101–120; BP diastolic 60–72
--- NOTE | 2017-06-06 01:41 | NUR ---
PT RECEIVED TRACHED ON THE VENT WITH NOTED SETTIGNS. VENT ALARMS ARE SET AND AUDIBLE WITH BVM BY BEDSIDE. SOFTWARE ASSET MANAGER CUFF PRESSURE NOTED. VENT IS PLUGGED INTO RED OUTLET. NO RESPIRATORY DISTRESS NOTED AT THIS TIME, WILL CONTINUE TO MONITOR. Addendum: 06/06/17 at 0142 by THADDEUS LO RT Amended: Links added.
[2017-06-06] MEDS: METOCLOPRAMIDE HCL 10 MG/2 ML VIAL IV SCH ×4 (03:02→21:23)
[2017-06-06] MEDS: ALBUTEROL HALF STRENGTH 1.25 MG/3 ML VIAL.NEB NEB SCH ×6 (03:50→23:55)
[2017-06-06] MEDS: IPRATROPIUM NEB FS 0.5 MG/2.5 ML AMPUL.NEB NEB SCH ×6 (03:50→23:55)
[2017-06-06] MEDS: ACETAMINOPHEN 650 MG/SUPP.RECT RC PRN ×2 (05:12→11:09)
[2017-06-06] MEDS: MEROPENEM 500 MG in IV NS 0.9% 50 ML IV SCH ×3 (05:12→21:04)
--- NOTE | 2017-06-06 05:20 | NUR ---
BINDING CUTTER SYNTHETIC CLOTH NOTES NOTED PATIENT WITH ELEVATED TEMP 100.2, COOLING MEASURES RENDERED. PRN TYLENOL CO GIVEN. WILL CONTINUE TO MONITOR.
--- NOTE | 2017-06-06 06:00 | NUR ---
DYE WINCH OPERATOR NOTES RECHECKED TEMPERATURE 99.7. WILL CONTINUE TO MONITOR.
[2017-06-06 07:07] LABS: BASOPHILS % (AUTO) 0.1 % (0.0-2.0); EOSINOPHILS % (AUTO) 0.2 % (0.0-6.0); HEMATOCRIT 21 % (39-51); LYMPHOCYTES % (AUTO) 6.4 % (20.0-44.0); MEAN CORPUSCULAR HEMOGLOBIN 27 PG (26.0-33.0); MEAN CORPUSCULAR HGB CONC 33 g/dl (31.0-36.0); MEAN CORPUSCULAR VOLUME 83 fL (80-96); MONOCYTES # (AUTO) 0.9 /CMM (0.1-1.30); MONOCYTES % (AUTO) 5.9 % (2.0-12.0); NEUTROPHILS # (AUTO) 13.2 /CMM (1.8-8.9); NEUTROPHILS % (AUTO) 87.4 % (43.0-81.0); PLATELET COUNT (AUTO) 455 /CMM (150-450); RDW COEFFICIENT OF VARIATION 18.1 (11.5-15.0); RED BLOOD CELL COUNT(AUTO) 2.49 MIL/uL (4.5-6.0); WHITE BLOOD COUNT (AUTO) 15.1 K/uL (4.3-11.0)
[2017-06-06 07:29] LABS: CALCIUM, SERUM 7.7 mg/dL (8.5-10.1); CREATININE 0.9 mg/dL (0.6-1.3); MAGNESIUM 1.7 mg/dL (1.8-2.4); PHOSPHORUS 3.6 mg/dL (2.5-4.9); POTASSIUM 3.3 mmol/L (3.5-5.1)
[2017-06-06] MEDS: ACETYLCYSTEINE 10% SOLN 400 MG/4 ML VIAL NEB SCH ×3 (07:35→23:30)
[2017-06-06 07:43] LABS: HEMOGLOBIN 6.8 g/dL (13.5-17.5)
--- NOTE | 2017-06-06 07:47 | NUR ---
SENIOR MAINTENANCE MECHANIC CLOSING NOTES NO SIGNIFICANT CHANGES OVERNIGHT. PAIN MONITORED AND MANAGED. NEEDED. NO EPISODE OF EMESIS. NO RESPIRATORY DISTRESS NOTED. ALL NEEDS ANTICIPATED AND MET. TOLERATING CURRENT VENT SETTINGS. GT ON LOW INTERMITTENT SUCTION WITH DARK GREEN OUTPUT. PATIENT HAD BMX2. KEPT CLEAN AND DRY. TURNED AND REPOSITIONED Q2 AND PRN. WOUND TX PROVIDED. F/C PATENT AND INTACT, DRAINING BY GRAVITY. HOB KEPT ELEVATED. SIDE RAILS UP AND LOCKED. BED KEPT AT LOWEST POSITION. CALL LIGHT KEPT WITHIN EASY REACH. CONTINUITY OF CARE ENDORSED TO AM NURSE.
[2017-06-06 08:22] LABS: BAND % (MANUAL) 1 % (0.0-5.0); LYMPHOCYTES % (MANUAL) 6 % (16-48); MONOCYTES % (MANUAL) 6 % (0-11.0); NEUTROPHILS % (MANUAL) 87 (42-76)
[2017-06-06] MEDS: LACTOBACILLUS RHAMNOSUS GG 1 EACH CAP.SPRINK GT SCH ×2 (08:47→17:00)
[2017-06-06] MEDS: BACLOFEN (10 MG) 10 MG TABLET GT SCH ×3 (08:47→17:00)
[2017-06-06] MEDS: GABAPENTIN 300 MG CAPSULE PO SCH ×3 (08:48→17:00)
[2017-06-06] MEDS: HYDROGEL DRESSING 90 GM TUBE TP SCH (08:48)
--- NOTE | 2017-06-06 09:15 | NUR ---
RN NOTE SPOKE WITH HAYDE JUNIOR REGARDING THE LOW H/H/. NO NEW ORDERS AT THIS TIME, NO S/S OF BLEEDING. WILL MONITOR PT.
[2017-06-06] MEDS ORDERED: DIATR MEGLU/DIATRIZOATE SODIUM 120 ML BOTTLE (GASTROGRAPHIN) ONE ×2 (09:56→14:32)
[2017-06-06] MEDS: HYDROMORPHONE INJ 0.5 MG/0.5 ML SYRINGE IV PRN ×3 (11:15→21:04)
--- NOTE | 2017-06-06 11:54 | NUR ---
OBTAINED A GATHERING WORKER VIEW OF ABD ON PT @11:15AM PT REFUSED TO DO UGGER GI AND SBS @11:50AM I NOTIFIED ALFONSO RODRIGUEZ AND SHE CONFIRMED PT REFUSED SHE STATED SHE WILL COMMUNICATE WITH ON REFUSAL
[2017-06-06] MEDS ORDERED: Magnesium 1GM/D5W 100ML PREMIX 100 ML IV SCH (13:30)
[2017-06-06] MEDS: POTASSIUM CL. PREMIX PERIPHER. 50 ML IV SCH ×2 (13:45→14:41)
[2017-06-06] MEDS: IV D5/ 0.9% NACL 1,000 ML IV PRN (13:49)
[2017-06-06] MEDS: VANCOMYCIN 0.75 GM in IV D5W 250 ML IV SCH (16:04)
[2017-06-06] MEDS: TRAZODONE 50 MG TABLET GT SCH (17:40)
--- NOTE | 2017-06-06 19:30 | NUR ---
HYDROELECTRIC COMPONENT MACHINIST INITIAL NOTES RECEIVED PATIENT AWAKE, ABLE TO MOUTH NEEDS. PATIENT VENT DEPENDENT. C/O 10/10 GENERALIZED BODY PAIN. NO RESPIRATORY DISTRESS NOTED. DENIES N/V. RESPIRATIONS EVEN AND UNLABORED, WITH VENT SETTINGS AC 22, TV 500, FIO2 30%, PEEP 0. ON TELE MONITOR SR 85. SKIN WARM AND DRY TO TOUCH. WITH GT PATENT AND INTACT, IN PLACE, CLAMPED AT THIS TIME. PER REPORT NO SUCTION AT THIS TIME. PATIENT FOR SERIES OF SMALL BOWEL XRAYS. F/C PATENT AND INTACT, IN PLACE. HOB ELEVATED. SIDE RAILS UP AND LOCKED. BED KEPT AT LOWEST POSITION. CALL LIGHT KEPT WITHIN EASY REACH. WILL CONTINUE TO MONITOR.
--- NOTE | 2017-06-06 21:30 | NUR ---
CASH APPLICATIONS REPRESENTATIVE NOTES RADIOLOGY AT BEDSIDE FOR XRAY. PER RADIOLOGIST, KEEP PATIENT NPO AND NO GT SUCTION UP UNTIL DOCTOR VIEWS THE RESULTS OF THE XRAYS.
[2017-06-06] MEDS: NA PHOS,M-B/NA PHOS,DI-BA 1 EA ENEMA RC SCH (22:49)
[2017-06-07] VITALS (13 sets, daily range): BP systolic 102–128; BP diastolic 58–78
[2017-06-07] MEDS: METOCLOPRAMIDE HCL 10 MG/2 ML VIAL IV SCH ×4 (03:35→23:20)
[2017-06-07] MEDS: ALBUTEROL HALF STRENGTH 1.25 MG/3 ML VIAL.NEB NEB SCH ×6 (04:01→23:30)
[2017-06-07] MEDS: IPRATROPIUM NEB FS 0.5 MG/2.5 ML AMPUL.NEB NEB SCH ×6 (04:01→23:30)
[2017-06-07] MEDS: HYDROMORPHONE INJ 0.5 MG/0.5 ML SYRINGE IV PRN (04:09)
[2017-06-07] MEDS: MEROPENEM 500 MG in IV NS 0.9% 50 ML IV SCH ×3 (04:42→22:52)
--- NOTE | 2017-06-07 07:05 | NUR ---
RN NOTES RECEIVED PT ON BED, ALERT ,MOUTH WORDS, VENT/ TRACH DEPENDENT, NO SOB NOTED, TOLERATING CURRENT VENT SETTING WELL, ON TELE, SR ,HR IN 90'S , GT CLAMPED AT THIS TIME , PT IS NPO , RUIZ DRAINING TO GRAVITY , HOB ELEVATED, SR UPx3, CALL LIGHTS WITHIN EASY REACH, D5NS AT 50CC/HR RUNNING VIA R UPPER ARM PICC LINE , SITE CDI, SR UP x3, CALL LIGHT WITHIN EASY REACH, CONTINUE TO MONITOR . R
[2017-06-07 07:11] LABS: BASOPHILS % (AUTO) 0.1 % (0.0-2.0); EOSINOPHILS # (AUTO) 0.1 /CMM (0.0-0.7); EOSINOPHILS % (AUTO) 0.7 % (0.0-6.0); LYMPHOCYTES # (AUTO) 0.8 /CMM (0.8-4.8); LYMPHOCYTES % (AUTO) 9.3 % (20.0-44.0); MEAN CORPUSCULAR HEMOGLOBIN 27 PG (26.0-33.0); MEAN CORPUSCULAR HGB CONC 33 g/dl (31.0-36.0); MEAN CORPUSCULAR VOLUME 83 fL (80-96); MONOCYTES # (AUTO) 0.5 /CMM (0.1-1.30); MONOCYTES % (AUTO) 6.2 % (2.0-12.0); NEUTROPHILS # (AUTO) 7.2 /CMM (1.8-8.9); NEUTROPHILS % (AUTO) 83.7 % (43.0-81.0); PLATELET COUNT (AUTO) 464 /CMM (150-450); RDW COEFFICIENT OF VARIATION 18.2 (11.5-15.0); RED BLOOD CELL COUNT(AUTO) 2.31 MIL/uL (4.5-6.0); WHITE BLOOD COUNT (AUTO) 8.6 K/uL (4.3-11.0)
[2017-06-07 07:20] LABS: HEMATOCRIT 19 % (39-51); HEMOGLOBIN 6.3 g/dL (13.5-17.5)
[2017-06-07] MEDS: ACETYLCYSTEINE 10% SOLN 400 MG/4 ML VIAL NEB SCH ×3 (07:23→23:30)
[2017-06-07 07:25] LABS: CALCIUM, SERUM 7.5 mg/dL (8.5-10.1); CREATININE 0.8 mg/dL (0.6-1.3); MAGNESIUM 1.8 mg/dL (1.8-2.4); PHOSPHORUS 3.5 mg/dL (2.5-4.9); POTASSIUM 2.9 mmol/L (3.5-5.1)
[2017-06-07] MEDS: VANCOMYCIN 0.75 GM in IV D5W 250 ML IV SCH (08:11)
--- NOTE | 2017-06-07 08:11 | NUR ---
ENERGY SALES BROKER CLOSING NOTES NO SIGNIFICANT CHANGES OVERNIGHT. PAIN MONITORED AND MANAGED. NEEDED. NO EPISODE OF EMESIS. NO RESPIRATORY DISTRESS NOTED. ALL NEEDS ANTICIPATED AND MET. TOLERATING CURRENT VENT SETTINGS. GT CLAMPED. PATIENT HAD BMX2. KEPT CLEAN AND DRY. TURNED AND REPOSITIONED Q2 AND PRN. WOUND TX PROVIDED. F/C PATENT AND INTACT, DRAINING BY GRAVITY. HOB KEPT ELEVATED. SIDE RAILS UP AND LOCKED. BED KEPT AT LOWEST POSITION. CALL LIGHT KEPT WITHIN EASY REACH. CONTINUITY OF CARE ENDORSED TO AM NURSE.
[2017-06-07] MEDS: HYDROGEL DRESSING 90 GM TUBE TP SCH (08:40)
--- NOTE | 2017-06-07 09:00 | NUR ---
RN NOTES SANDI SPREADING MACHINE OPERATOR NOTIFIED REGARDING H/H 6.07/01 , NEW ORDER GIVEN
[2017-06-07 09:23] LABS: EOSINOPHILS % (MANUAL) 1 % (0-4); LYMPHOCYTES % (MANUAL) 15 % (16-48); MONOCYTES % (MANUAL) 5 % (0-11.0); NEUTROPHILS % (MANUAL) 79 (42-76)
--- NOTE | 2017-06-07 10:39 | NUR ---
RN NOTES ONE UNIT OF BLOOD STARTED, VSS STABLE , CONTINUE TO MONITOR .
[2017-06-07] MEDS: LACTOBACILLUS RHAMNOSUS GG 1 EACH CAP.SPRINK GT SCH ×2 (10:45→17:30)
[2017-06-07] MEDS: GABAPENTIN 300 MG CAPSULE PO SCH ×3 (10:45→17:30)
[2017-06-07] MEDS: BACLOFEN (10 MG) 10 MG TABLET GT SCH ×3 (10:45→17:30)
[2017-06-07] MEDS: ACETAMINOPHEN 325 MG TABLET PO PRN (10:45)
[2017-06-07] MEDS: POTASSIUM CL. PREMIX PERIPHER. 50 ML IV SCH ×6 (12:12→17:30)
--- NOTE | 2017-06-07 13:30 | NUR ---
RN NOTES ONE UNIT OF BLOOD COMPLETED, PT TOLERATED WELL. CONTINUE TO MONITOR.
[2017-06-07] MEDS: TRAZODONE 50 MG TABLET GT SCH (17:31)
--- NOTE | 2017-06-07 18:00 | NUR ---
RN NOTES RESPIRATION EVEN AND UNLABORED, PT STABLE D5NS AT 50CC/HR RUNNING VIA R UPPER ARM PICC LINE , NO DISTRESS NOTED, SR UP x3, WILL ENDORSE TO HOUSEHOLD APPLIANCE ASSEMBLER NURSE FOR NADIA.
[2017-06-07] MEDS ORDERED: FIBERSOURCE HN 1,000 ML BOTTLE GT SCH (18:30)
--- NOTE | 2017-06-07 20:00 | NUR ---
RN NOTES RECEIVED PATIENT AWAKE IN BED WITH NO DISTRESS NOTED. VENT SETTING WELL TOLERATED. NO COMPLAINT OF PAIN OR DISCOMFORT. ALERT AND ORIENTED. ABLE TO MOUTHWORDS NEEDS. GTUBE IN PLACE AND INTACT. FEEDING WELL TOLERATED. HOB ELEVATED. KEPT CLEAN AND DRY. WILL CONTINUE TO MONITOR.
[2017-06-07] MEDS: NA PHOS,M-B/NA PHOS,DI-BA 1 EA ENEMA RC SCH (22:44)
[2017-06-07] MEDS: IV D5/ 0.9% NACL 1,000 ML IV PRN (23:05)
[2017-06-07] MEDS ORDERED: METOCLOPRAMIDE HCL 10 MG/2 ML VIAL ONE (23:13)
[2017-06-08] VITALS: BP 114/72
[2017-06-08] MEDS: IPRATROPIUM NEB FS 0.5 MG/2.5 ML AMPUL.NEB NEB SCH ×6 (02:59→23:32)
[2017-06-08] MEDS: ALBUTEROL HALF STRENGTH 1.25 MG/3 ML VIAL.NEB NEB SCH ×6 (02:59→23:32)
[2017-06-08] MEDS: VANCOMYCIN 0.75 GM in IV D5W 250 ML IV SCH ×2 (03:18→20:22)
[2017-06-08] MEDS: METOCLOPRAMIDE HCL 10 MG/2 ML VIAL IV SCH (03:19)
[2017-06-08 04:00] VITALS: BP 118/66
[2017-06-08] MEDS: MEROPENEM 500 MG in IV NS 0.9% 50 ML IV SCH ×3 (05:01→20:55)
--- NOTE | 2017-06-08 06:33 | NUR ---
RN CLOSING NOTES PATIENT IN BED, RESTING COMFORTABLY WITH NO DISTRESS NOTED. NO DISTRESS NOTED. NO COMPLAINT OF PAIN OR DISCOMFORT. GT INTACT, FEEDING WELL TOLERATED. NO SIGNIFICANT CHANGE OF CONDITION, WILL ENDORSE TO AM SHIFT FOR CONTINUITY OF CARE
--- NOTE | 2017-06-08 07:00 | NUR ---
RN NOTES RECEIVED PATIENT ON BED, A/Ox3, ABLE TO MOUTH WORDS, VENT/ TRACH DEPENDENT, TRACH CARE DONE, TOLERATING CURRENT VENT SETTING WELL, ON TELE ST HR IN 100'S , G TUBE WITH , FIBERSOURCE AT 20CC/HR RUNNING , NO RESIDUAL NOTED, HOB ELEVATED. R UPPER ARM PICC LINE SITE CDI, WITH D5 NS AT 50CC/HR RUNNING , SR UP x3, BED LOCKED AND IN LOWEST POSITION , KEPT CLEAN AND DRY. WILL CONTINUE TO MONITOR.
[2017-06-08] MEDS: ACETYLCYSTEINE 10% SOLN 400 MG/4 ML VIAL NEB SCH ×3 (07:35→23:30)
[2017-06-08 07:36] LABS: BASOPHILS % (AUTO) 0.3 % (0.0-2.0); EOSINOPHILS # (AUTO) 0.1 /CMM (0.0-0.7); EOSINOPHILS % (AUTO) 0.6 % (0.0-6.0); HEMATOCRIT 23 % (39-51); HEMOGLOBIN 7.6 g/dL (13.5-17.5); LYMPHOCYTES % (AUTO) 10.6 % (20.0-44.0); MEAN CORPUSCULAR HEMOGLOBIN 28 PG (26.0-33.0); MEAN CORPUSCULAR HGB CONC 34 g/dl (31.0-36.0); MEAN CORPUSCULAR VOLUME 83 fL (80-96); MONOCYTES # (AUTO) 0.6 /CMM (0.1-1.30); MONOCYTES % (AUTO) 6.3 % (2.0-12.0); NEUTROPHILS # (AUTO) 7.6 /CMM (1.8-8.9); NEUTROPHILS % (AUTO) 82.2 % (43.0-81.0); PLATELET COUNT (AUTO) 449 /CMM (150-450); RDW COEFFICIENT OF VARIATION 17.5 (11.5-15.0); RED BLOOD CELL COUNT(AUTO) 2.71 MIL/uL (4.5-6.0); WHITE BLOOD COUNT (AUTO) 9.3 K/uL (4.3-11.0)
[2017-06-08] MEDS: METOCLOPRAMIDE HCL 10 MG/10 ML UDC GT SCH ×3 (07:52→17:01)
[2017-06-08 08:00] VITALS: BP 123/76
[2017-06-08] MEDS: ACETAMINOPHEN 325 MG TABLET PO PRN ×2 (08:00→20:22)
[2017-06-08] MEDS: BACLOFEN (10 MG) 10 MG TABLET GT SCH ×3 (08:00→17:01)
[2017-06-08] MEDS: LACTOBACILLUS RHAMNOSUS GG 1 EACH CAP.SPRINK GT SCH ×2 (08:00→17:01)
[2017-06-08] MEDS: GABAPENTIN 300 MG CAPSULE PO SCH ×3 (08:00→17:09)
[2017-06-08 08:01] LABS: CALCIUM, SERUM 7.5 mg/dL (8.5-10.1); CREATININE 0.7 mg/dL (0.6-1.3); MAGNESIUM 1.8 mg/dL (1.8-2.4); PHOSPHORUS 2.8 mg/dL (2.5-4.9); POTASSIUM 3.7 mmol/L (3.5-5.1)
[2017-06-08] MEDS: HYDROGEL DRESSING 90 GM TUBE TP SCH (08:01)
--- NOTE | 2017-06-08 08:14 | NUR ---
RN NOTES T=101.7, TYLENOL 650 GIVEN VIA GT , SANDI INSTRUMENT INSTALLER NOTIFIED , CONTINUE TO MONITOR.
[2017-06-08 08:17] LABS: IRON, SERUM 9 ug/dl (50-175); TOTAL IRON BINDING CAPACITY 126 ug/dl (250-450)
--- NOTE | 2017-06-08 10:00 | NUR ---
RN NOTES TF INCREASED TO 40CC/HR , PT TOLERATING WELL , CONTINUE TO MONITOR.
[2017-06-08 12:00] VITALS: BP 95/50
[2017-06-08 16:00] VITALS: BP 113/75
[2017-06-08] MEDS: TRAZODONE 50 MG TABLET GT SCH (17:01)
--- NOTE | 2017-06-08 17:50 | NUR ---
Pt tolerated current vent settings well. No changes made. Pt trach is secure. Vent is plugged into a red outlet, alarms are set and audible, and BVM is at bedside. Addendum: 06/08/17 at 1751 by JULIANA LEE RT Amended: Links added.
--- NOTE | 2017-06-08 18:09 | NUR ---
RN NOTES TRACH CARE DONE, RESPIRATION EVEN AND UNLABORED, NO SOB NOTED, FIBERSOURCE AT 40CC/HR RUNNING VIA GT , PT TOLERATING WELL, D5 NS AT 50 CC/HR RUNNING VIA R UPPER ARM PICC LINE , SR UP x3, CALL LIGHT WITHIN EASY REACH , WILL ENDORSE TO MAIL CENSOR NURSE FOR NADIA.
[2017-06-08] MEDS: HYDROCODONE/APAP 10/325MG 1 EA TABLET GT PRN (18:32)
[2017-06-08 20:00] VITALS: BP 95/58
--- NOTE | 2017-06-08 22:00 | NUR ---
RN NOTES RECEIVED PATIENT IN BED WITH NO DISTRESS NOTED. BREATHING EVEN AND UNLABORED. NOTED FEBRILE WITH TEMPERATURE OF 102.1. TYLENOL GIVEN 650MG. COOLING MEASURES PROVIDED. BED BATH ADMINISTERED. REPOSITION FOR COMFORT. AT 2100 TEMPERATURE WENT DOWN TO 100.1. CONTINUOUS COOLING MEASURES PROVIDED. GTUBE IN PLACE, NO LEAKING, NO RESIDUAL. FEEDING WELL TOLERATED. FC PATENT AND INTACT DRAINING CLEAR YELLOW WITH NO FOUL ODOR. KEPT CLEAN AND DRY. WILL CONTINUE TO MONITOR
[2017-06-08] MEDS: IV D5/ 0.9% NACL 1,000 ML IV PRN (23:14)
[2017-06-08] MEDS: NA PHOS,M-B/NA PHOS,DI-BA 1 EA ENEMA RC SCH (23:14)
[2017-06-09] VITALS: BP 98/54
[2017-06-09] MEDS: METOCLOPRAMIDE HCL 10 MG/10 ML UDC GT SCH ×4 (01:20→17:21)
[2017-06-09 04:00] VITALS: BP 105/56
[2017-06-09] MEDS: ALBUTEROL HALF STRENGTH 1.25 MG/3 ML VIAL.NEB NEB SCH ×6 (04:01→23:26)
[2017-06-09] MEDS: IPRATROPIUM NEB FS 0.5 MG/2.5 ML AMPUL.NEB NEB SCH ×6 (04:01→23:26)
[2017-06-09] MEDS: FIBERSOURCE HN 1,000 ML BOTTLE GT SCH (05:05)
[2017-06-09] MEDS: MEROPENEM 500 MG in IV NS 0.9% 50 ML IV SCH ×3 (05:05→22:29)
--- NOTE | 2017-06-09 06:19 | NUR ---
RN CLOSING NOTES LAST TEMP TAKEN 98.5. NO DISTRESS NOTED. BREATHING EVEN AND UNLABORED. WILL ENDORSE TO AM SHIFT FOR CONTINUITY OF CARE.
[2017-06-09] MEDS: ACETYLCYSTEINE 10% SOLN 400 MG/4 ML VIAL NEB SCH ×3 (07:35→23:30)
--- NOTE | 2017-06-09 07:39 | NUR ---
SPORTS MEDICINE TRAINER OPENING NOTES RECEIVED PT FROM NIGHTSORFT NURSE IN STABLE CONDITION. PT IS A/O X1-2. NO SOB OR SIGNS OF DISTRESS NOTED. BREATHING IS EVEN AND UNLABORED. PT IS TRACH/VENT DEPENDENT. VENT SETTINGS VERIFIED. PT TOLERATING SETTINGS WELL./ HE IS SINUS RHYTHM ON THE TELE MONITOR WITH OCCASIONAL PACS. RUIZ CATHETER NOTED TO BE DRAINING CLEAR YELLOW URINE. GTUBE NOTED TO BE PATENT AND INTACT. PLACEMENT VERIFIED VIA AUSCULTATION. FIBERSOURCE INFUSING ORDERED. PT TOLERATING FEEDING WELL. RIGHT UPPER ARM PICC LINE NOTED TO BE PATENT AND INTACT. PT IS RECEIVING D5NS @ 50ML/HR/ PT TOLERATING INFUSION WELL. NO REDNESS OR SIGNS OF INFILTRATION NOTED. BED IN LOW LOCKED POSITION, SIDE RAILS UP X3, CALL LIGHT WITHIN REACH, BED ALARM ON. WILL CONTINUE TO MONITOR.
[2017-06-09 08:00] VITALS: BP 100/57
[2017-06-09] MEDS: BACLOFEN (10 MG) 10 MG TABLET GT SCH ×3 (08:23→17:21)
[2017-06-09] MEDS: LACTOBACILLUS RHAMNOSUS GG 1 EACH CAP.SPRINK GT SCH ×2 (08:23→17:21)
[2017-06-09] MEDS: GABAPENTIN 300 MG CAPSULE PO SCH ×3 (08:23→17:21)
[2017-06-09] MEDS: HYDROGEL DRESSING 90 GM TUBE TP SCH (08:24)
[2017-06-09] MEDS: HYDROCODONE/APAP 10/325MG 1 EA TABLET GT PRN (11:19)
[2017-06-09 12:00] VITALS: BP 100/62
[2017-06-09 13:17] LABS: BASOPHILS # (AUTO) 0.1 /CMM (0.0-0.2); BASOPHILS % (AUTO) 0.9 % (0.0-2.0); EOSINOPHILS # (AUTO) 0.2 /CMM (0.0-0.7); EOSINOPHILS % (AUTO) 2.4 % (0.0-6.0); HEMATOCRIT 22 % (39-51); LYMPHOCYTES # (AUTO) 1.2 /CMM (0.8-4.8); LYMPHOCYTES % (AUTO) 13.5 % (20.0-44.0); MEAN CORPUSCULAR HEMOGLOBIN 27 PG (26.0-33.0); MEAN CORPUSCULAR HGB CONC 32 g/dl (31.0-36.0); MEAN CORPUSCULAR VOLUME 84 fL (80-96); MONOCYTES # (AUTO) 0.5 /CMM (0.1-1.30); MONOCYTES % (AUTO) 6.4 % (2.0-12.0); NEUTROPHILS # (AUTO) 6.6 /CMM (1.8-8.9); NEUTROPHILS % (AUTO) 76.8 % (43.0-81.0); PLATELET COUNT (AUTO) 408 /CMM (150-450); RED BLOOD CELL COUNT(AUTO) 2.61 MIL/uL (4.5-6.0); WHITE BLOOD COUNT (AUTO) 8.6 K/uL (4.3-11.0)
[2017-06-09 13:31] LABS: CREATININE 0.7 mg/dL (0.6-1.3); MAGNESIUM 1.7 mg/dL (1.8-2.4); PHOSPHORUS 3.3 mg/dL (2.5-4.9)
[2017-06-09] MEDS: VANCOMYCIN 0.75 GM in IV D5W 250 ML IV SCH (14:16)
--- NOTE | 2017-06-09 14:25 | NUR ---
FISHERIES OFFICER NOTES LAB CALLED IN REGARDS TO PT'S H/H. BRIAN THE SMALL BUSINESS BANKING OFFICER WAS MADE AWARE OF THE RESULTS ALONG WITH PT'S LOW MG. PER BRIAN "JUST MONITOR FOR NO BLEEDING AND GIVE 2G MAG". WILL CARRY OUT ORDERS
[2017-06-09] MEDS: Magnesium 1GM/D5W 100ML PREMIX PIGGYBACK IV SCH ×2 (15:23→16:43)
[2017-06-09 16:00] VITALS: BP 98/56
[2017-06-09] MEDS: TRAZODONE 50 MG TABLET GT SCH (17:21)
--- NOTE | 2017-06-09 18:27 | NUR ---
RT END OF THE SHIFT REPORT, PT. 56 Y OLD MALE REMAIN STABLE SINCE 0700 AWAKE, FOLLOWING COMMAND. TRACHED DORA # 6 ON MECHANICAL VENT, WITH NOTED SETTINGS. EQUAL CHEST RISE NOTED, TRACH IN GOOD POSITION AND SECURE. ANNIE VENT WELL T/O DAY B/S RHONCHI BILATERALLY AND SUX'D FOR MOD. AMT OF YELLOW SECRETIONS. TX'S GIVEN INLINE AND NO ADVERSE REACTION NOTED. VENT PLUGGED INTO RED OUTLET, AMBU BAG AT THE BEDSIDE. CONTINUE FOR CARE AND MONITORING, REPORT WILL PASS TO PM SHIFT. Addendum: 06/09/17 at 1829 by RICHELLE MAZA RT Amended: Links added.
--- NOTE | 2017-06-09 18:44 | NUR ---
BIOLOGY FACULTY MEMBER CLOSING NOTES PT REMAINS IN STABLE. NO ACUTE CHANGES IN CONDITION DURING SHIFT, WOUND AND SKIN CARE RENDERED ORDERED. VITALS STABLE AT THIS TIME. WILL ENDORSE TO NIGHTSHIFT NURSE FOR NADIA
[2017-06-09 20:00] VITALS: BP 116/65
[2017-06-09] MEDS: NA PHOS,M-B/NA PHOS,DI-BA 1 EA ENEMA RC SCH (22:29)
[2017-06-10] VITALS (11 sets, daily range): BP systolic 93–124; BP diastolic 37–79
[2017-06-10] MEDS: METOCLOPRAMIDE HCL 10 MG/10 ML UDC GT SCH ×5 (01:20→23:35)
[2017-06-10] MEDS: ALBUTEROL HALF STRENGTH 1.25 MG/3 ML VIAL.NEB NEB SCH ×7 (02:55→23:30)
[2017-06-10] MEDS: IPRATROPIUM NEB FS 0.5 MG/2.5 ML AMPUL.NEB NEB SCH ×7 (02:55→23:30)
[2017-06-10] MEDS: MEROPENEM 500 MG in IV NS 0.9% 50 ML IV SCH ×3 (05:54→21:22)
[2017-06-10 07:34] LABS: BASOPHILS % (AUTO) 0.2 % (0.0-2.0); EOSINOPHILS # (AUTO) 0.2 /CMM (0.0-0.7); EOSINOPHILS % (AUTO) 2.9 % (0.0-6.0); HEMATOCRIT 21 % (39-51); LYMPHOCYTES % (AUTO) 12.4 % (20.0-44.0); MEAN CORPUSCULAR HEMOGLOBIN 27 PG (26.0-33.0); MEAN CORPUSCULAR HGB CONC 32 g/dl (31.0-36.0); MEAN CORPUSCULAR VOLUME 85 fL (80-96); MONOCYTES # (AUTO) 0.4 /CMM (0.1-1.30); MONOCYTES % (AUTO) 5.1 % (2.0-12.0); NEUTROPHILS # (AUTO) 6.3 /CMM (1.8-8.9); NEUTROPHILS % (AUTO) 79.4 % (43.0-81.0); PLATELET COUNT (AUTO) 384 /CMM (150-450); RDW COEFFICIENT OF VARIATION 18.7 (11.5-15.0); RED BLOOD CELL COUNT(AUTO) 2.43 MIL/uL (4.5-6.0)
[2017-06-10] MEDS: ACETYLCYSTEINE 10% SOLN 400 MG/4 ML VIAL NEB SCH ×3 (07:35→23:30)
[2017-06-10 07:54] LABS: HEMOGLOBIN 6.6 g/dL (13.5-17.5)
--- NOTE | 2017-06-10 08:00 | NUR ---
tele railroad dispatcher: notes won gill ([facility]) lining ironer notified re: hgb 6.6. and hct 21 with no new order. cn aware. will continue to monitor.
[2017-06-10 08:06] LABS: CREATININE 0.7 mg/dL (0.6-1.3); MAGNESIUM 2.1 mg/dL (1.8-2.4); PHOSPHORUS 3.3 mg/dL (2.5-4.9)
[2017-06-10] MEDS: BACLOFEN (10 MG) 10 MG TABLET GT SCH ×3 (08:47→17:41)
[2017-06-10] MEDS: LACTOBACILLUS RHAMNOSUS GG 1 EACH CAP.SPRINK GT SCH ×2 (08:47→17:41)
[2017-06-10] MEDS: GABAPENTIN 300 MG CAPSULE PO SCH ×3 (08:47→17:41)
[2017-06-10] MEDS: VANCOMYCIN 0.75 GM in IV D5W 250 ML IV SCH (08:57)
[2017-06-10] MEDS: HYDROGEL DRESSING 90 GM TUBE TP SCH (08:58)
--- NOTE | 2017-06-10 09:23 | NUR ---
tele cook's assistant: notes called pt [facility], spoke to redd (cook's assistant) and informed me that his picc line was inserted on the May at [facility] and unable to provide update on his immunization records at this time.
[2017-06-10 09:56] LABS: EOSINOPHILS % (MANUAL) 2 % (0-4); LYMPHOCYTES % (MANUAL) 7 % (16-48); NEUTROPHILS % (MANUAL) 91 (42-76)
--- NOTE | 2017-06-10 13:04 | NUR ---
mir maysn: md visit seen and examined by won gill ([facility]) with new orders. orders acknowledged. pt need 1 unit of prbc. pt made aware. pt has already a consent for blood transfusion on the . will continue to monitor. Addendum: 06/10/17 at 1644 by SAUNDRA FERNANDEZ LVN pt had episode of emesis (small amount of feeding formula) and [facility] made aware.
[2017-06-10] MEDS: HYDROCODONE/APAP 5/325MG 1 EACH TABLET PO PRN (13:16)
--- NOTE | 2017-06-10 13:16 | NUR ---
tele assistant project engineer: notes c/o 10/22 lower back pain, medicated with norco 5/325mg po as ordered. instructed to call for assistance. will continue to monitor.
[2017-06-10] MEDS: SOD FERRIC GLUC 125 MG in IV NS 0.9% 100 ML IV SCH (14:06)
--- NOTE | 2017-06-10 14:16 | NUR ---
tele tester electronic scale: notes turned and repositioned. tx done to wounds as ordered. verbalized some relief of pain. seen by dr. haq (heel cover softener) at this time. instructed to call for assistance. will continue to monitor.
--- NOTE | 2017-06-10 15:30 | NUR ---
tele literacy coordinator: notes blood transfusion (prbc) started at this time. vss. afebrile. will continue to monitor.
--- NOTE | 2017-06-10 15:45 | NUR ---
tele transplanter: notes no a/r noted after 15mins of transfusion. will continue to monitor.
--- NOTE | 2017-06-10 16:00 | NUR ---
tele pullman car clerk: notes no a/r noted after 30 mins of transfusion. vss, afebrile. will continue to monitor.
--- NOTE | 2017-06-10 16:30 | NUR ---
tele head athletic trainer/strength coach: notes blood still infusing without a/r noted. vss remains stable, afebrile. will continue to monitor.
--- NOTE | 2017-06-10 17:00 | NUR ---
tele senior training specialist: notes noted pt vomit mod amount of feeding, pt is on reglan 10mg q 6hours. dr. monroe notified and made aware with no new order.
[2017-06-10] MEDS: TRAZODONE 50 MG TABLET GT SCH (17:41)
--- NOTE | 2017-06-10 18:00 | NUR ---
tele band scroll saw operator: notes blood still infusing without a/r noted. vss; afebrile. will continue to monitor.
--- NOTE | 2017-06-10 18:16 | NUR ---
RT END OF THE SHIFT REPORT, PT. 56 Y OLD MALE REMAIN STABLE SINCE REC. 0700 AM. AWAKE, AND FOLLOWING COMMAND. ALMA'D DORA # 6 ON MECHANICAL VENT, WITH NOTED SETTINGS. EQUAL CHEST RISE NOTED, TRACH IN GOOD POSITION AND SECURE. HME CHANGED ANNIE VENT WELL T/O DAY B/S RHONCHI BILATERALLY AND SUX'D FOR SMALL AMT OF WHITE SECRETIONS. TX'S GIVEN INLINE NO ADVERSE REACTION NOTED. VENT PLUGGED INTO RED OUTLET, AMBU BAG AT THE BEDSIDE. CONTINUE FOR CARE AND MONITORING, REPORT WILL PASS TO PM SHIFT Addendum: 06/10/17 at 1817 by RICHELLE MAZA RT Amended: Links added.
--- NOTE | 2017-06-10 18:30 | NUR ---
tele outbound sales advisor: notes blood transfusion completed without a/r noted. needs attended. vss; afebrile. will continue to monitor.
[2017-06-10] MEDS: NA PHOS,M-B/NA PHOS,DI-BA 1 EA ENEMA RC SCH (21:22)
[2017-06-11] VITALS: BP_SYST 120; BP_DIAS 7; BP_DIAS 73
[2017-06-11] MEDS: VANCOMYCIN 0.75 GM in IV D5W 250 ML IV SCH (01:23)
[2017-06-11] MEDS: FIBERSOURCE HN 1,000 ML BOTTLE GT SCH (01:40)
[2017-06-11] MEDS: IV D5/ 0.9% NACL 1,000 ML IV PRN (03:50)
[2017-06-11 04:00] VITALS: BP 124/77
[2017-06-11] MEDS: ALBUTEROL HALF STRENGTH 1.25 MG/3 ML VIAL.NEB NEB SCH ×4 (04:26→15:09)
[2017-06-11] MEDS: IPRATROPIUM NEB FS 0.5 MG/2.5 ML AMPUL.NEB NEB SCH ×4 (04:26→15:09)
[2017-06-11] MEDS: METOCLOPRAMIDE HCL 10 MG/10 ML UDC GT SCH ×3 (05:40→18:00)
[2017-06-11] MEDS: MEROPENEM 500 MG in IV NS 0.9% 50 ML IV SCH ×2 (05:40→12:05)
[2017-06-11 06:35] LABS: CALCIUM, SERUM 7.4 mg/dL (8.5-10.1); CREATININE 0.7 mg/dL (0.6-1.3); POTASSIUM 4.2 mmol/L (3.5-5.1)
[2017-06-11 06:39] LABS: BASOPHILS % (AUTO) 0.2 % (0.0-2.0); EOSINOPHILS # (AUTO) 0.2 /CMM (0.0-0.7); HEMATOCRIT 25 % (39-51); HEMOGLOBIN 8.3 g/dL (13.5-17.5); LYMPHOCYTES # (AUTO) 0.8 /CMM (0.8-4.8); LYMPHOCYTES % (AUTO) 6.8 % (20.0-44.0); MEAN CORPUSCULAR HEMOGLOBIN 29 PG (26.0-33.0); MEAN CORPUSCULAR HGB CONC 33 g/dl (31.0-36.0); MEAN CORPUSCULAR VOLUME 87 fL (80-96); MONOCYTES # (AUTO) 0.6 /CMM (0.1-1.30); NEUTROPHILS # (AUTO) 9.7 /CMM (1.8-8.9); PLATELET COUNT (AUTO) 381 /CMM (150-450); RDW COEFFICIENT OF VARIATION 18.3 (11.5-15.0); WHITE BLOOD COUNT (AUTO) 11.3 K/uL (4.3-11.0)
--- NOTE | 2017-06-11 07:00 | NUR ---
RN NOTES, PATIENT AWAKE AT THIS TIME, ON VENT SETTINGS, NO SOB/ACUTE DISTRESS NOTED, TOLERATED SETTINGS WELL, GTF RUNNING AND PATIENT TOLERATED WELL, WITH NO RESIDUAL AT THIS TIME, LA NENA PICC LINE INTACT AND PATENT, IVF RUNNING WELL AND TOLERATED WELL, F/C IN PLACE DRAINING YELLOW URINE BY GRAVITY, NO HEMATURIA NOTED, KETP DRY AND CLEAN, REPOSITION PROVIDED PER PROTOCOL, OFF LOAD EXTREMITIES, BED LOCKED AND IN LOWEST POSITION, CALL LIGHT W/I REACH, SUCTIONING PROVIDED NEEDED, WILL ENDORSE CONTINUITY OF CARE TO ONCOMING NURSE.
[2017-06-11] MEDS: ACETYLCYSTEINE 10% SOLN 400 MG/4 ML VIAL NEB SCH ×2 (07:22→15:09)
--- NOTE | 2017-06-11 07:40 | NUR ---
SOFTWARE RELEASE ENGINEER NOTE: PATIENT IN BED, AWAKE AND OPEN HIS EYES. MOUTHWORDS. NOT ON ANY FORM OF DISTRESS. DENIED PAIN AT THIS TIME. VENT-TRACH DEPENDENT SATURATING 96%. HOB ELEVATED. GT FEEDING OF FIBERSOURCE@60CC/HR TOLERATING WELL. (R) UA PICC LINE NOTED INTACT AND PATENT. AFEBRILE. ON RUSSIAN LANGUAGE PROFESSOR, ST HR= 106. BED ALARM AND LOCKED AT ALL TIMES. CALL LIGHT WITHIN REACH. NEEDS ANTICIPATED.
[2017-06-11 08:00] VITALS: BP 108/76
[2017-06-11] MEDS: LACTOBACILLUS RHAMNOSUS GG 1 EACH CAP.SPRINK GT SCH ×2 (08:54→16:00)
[2017-06-11] MEDS: GABAPENTIN 300 MG CAPSULE PO SCH ×3 (08:54→16:00)
[2017-06-11] MEDS: BACLOFEN (10 MG) 10 MG TABLET GT SCH ×3 (08:54→16:00)
[2017-06-11] MEDS: HYDROGEL DRESSING 90 GM TUBE TP SCH (08:54)
[2017-06-11 12:00] VITALS: BP 103/78
[2017-06-11] MEDS ORDERED: FLUCONAZOLE (100 MG) 100 MG TABLET PO SCH (12:30)
[2017-06-11] MEDS: ONDANSETRON HCL/PF 4 MG/2 ML VIAL IVP PRN (12:38)
[2017-06-11 13:08] LABS: OCCULT BLOOD STOOL NEGATIVE (NEGATIVE)
[2017-06-11] MEDS: SOD FERRIC GLUC 125 MG in IV NS 0.9% 100 ML IV SCH (13:45)
--- NOTE | 2017-06-11 14:30 | NUR ---
SUPERVISOR HAND WORKERS NOTE: CALLED AND SPOKE W/ ELISEO MCFADDEN FROM [facility] AND PROVIDED HER W/ THE PATIENT'S INFORMATION RE: HER HOSPITALIZATION SUMMARY. DISCHARGE INSTRUCTIONS WERE GIVEN TO HER. INCLUDED TO THE DISCHARGE INSTRUCTIONS WAS THE PATIENT'S PRESCRIPTION FOR DIFLUCAN. INQUIRED ABOUT THE PATIENT'S IMMUNIZATION RECORDS (PNEUMONIA AND FLU VACCINE) PER [place], SHE DOES NOT HAVE ANYTHING ON THE RECORD. PATIENT WAS ASKED IF HE WANTED TO RECEIVE THE FLU AND PNEUMONIA VACCINE AND HE NODDED AND AGREED TO RECEIVE IT. HAYDE LEWIS WAS AWARE W/ ORDERS TO ADMINSITER INFLUENZA AND PNEUMONIA VACCINE.
[2017-06-11] MEDS ORDERED: PNEUMOCOCCAL 23-VAL P-SAC VAC 0.5 ML VIAL SQ ONE (15:00)
[2017-06-11] MEDS ORDERED: FLU VACC QS 2017-18(36MOS+)/PF 0.5 ML DISP.SYRIN IM ONE (15:00)
[2017-06-11 16:00] VITALS: BP 91/67
[2017-06-11] MEDS: TRAZODONE 50 MG TABLET GT SCH (17:59)
--- NOTE | 2017-06-11 18:20 | NUR ---
INDUSTRIAL ELECTRICAL ENGINEER NOTE: PATIENT WAS PICKED UP BY 2 CUSTOMER COMPLAINT CLERK AND 1 RT OF [facility] VIA GURNEY. ON STABLE CONDITION. DISCHARGE PACKET WAS SENT W/ THE AMBULANCE STAFF AND THE PORTABLE VENT BROUGHT IN BY THE PATIENT UPON ADMISSION. V/S= 98/73, 98.5F, 80, 16, 95% ON CURRENT VENT SETTING AND NO FACIAL GRIMACING NOTED. DISCHARGE INSTRUCTIONS WERE GIVEN INCLUDING THE PRESCRIPTION FOR DIFLUCAN. CONTINUITY OF CARE REPORT WAS GIVEN TO ELISEO MCFADDEN AT [facility]. INFLUENZA AND PNEUMONIA VACCINE WAS ADMINISTERED PER PATIENT'S REQUEST.
== END 2017-06-11 18:10 | DRG 710 ==
LOC: EDBD 03:31 → ER 03:31 → TELE1 04:46 → TELE-TD 05:21 → TELE1 05-30 11:23
PROVIDERS: ADMIT Nurse Practitioner Acute Care; ATTEND Nurse Practitioner Acute Care
PROC: 5A1955Z Respiratory Ventilation, Greater than 96 Consecutive Hours (ICD-10-PCS; principal; 2017-05-29)
PROC: 0JBL0ZZ Excision of Right Upper Leg Subcutaneous Tissue and Fascia, Open Approach (ICD-10-PCS; 2017-05-30)
PROC: 0KBN0ZZ Excision of Right Hip Muscle, Open Approach (ICD-10-PCS; 2017-05-30)
PROC: 0KBP0ZZ Excision of Left Hip Muscle, Open Approach (ICD-10-PCS; 2017-05-30)
PROC: 0KBF0ZZ Excision of Right Trunk Muscle, Open Approach (ICD-10-PCS; 2017-05-30)
PROC: 30233N1 Transfusion of Nonautologous Red Blood Cells into Peripheral Vein, Percutaneous Approach (ICD-10-PCS; 2017-06-07)
DX: A41.9 Sepsis, unspecified organism (principal); J96.21 Acute and chronic respiratory failure with hypoxia; J69.0 Pneumonitis due to inhalation of food and vomit; G93.41 Metabolic encephalopathy; L89.114 Pressure ulcer of right upper back, stage 4; E43 Unspecified severe protein-calorie malnutrition; J90 Pleural effusion, not elsewhere classified; J15.6 Pneumonia due to other Gram-negative bacteria; J15.9 Unspecified bacterial pneumonia; L89.154 Pressure ulcer of sacral region, stage 4; L89.213 Pressure ulcer of right hip, stage 3; N39.0 Urinary tract infection, site not specified; E11.22 Type 2 diabetes mellitus with diabetic chronic kidney disease; E78.5 Hyperlipidemia, unspecified; D68.59 Other primary thrombophilia; E83.42 Hypomagnesemia; F41.9 Anxiety disorder, unspecified; K21.9 Gastro-esophageal reflux disease without esophagitis; R53.2 Functional quadriplegia; N18.9 Chronic kidney disease, unspecified; R13.10 Dysphagia, unspecified; Z74.01 Bed confinement status; Z86.73 Personal history of transient ischemic attack (TIA), and cerebral infarction without residual deficits; Z87.01 Personal history of pneumonia (recurrent); Z88.0 Allergy status to penicillin; Z93.0 Tracheostomy status; Z93.1 Gastrostomy status; Z99.11 Dependence on respirator [ventilator] status; K52.9 Noninfective gastroenteritis and colitis, unspecified; B96.4 Proteus (mirabilis) (morganii) as the cause of diseases classified elsewhere; D64.9 Anemia, unspecified; B35.1 Tinea unguium; M86.8X8 Other osteomyelitis, other site; F03.90 Unspecified dementia, unspecified severity, without behavioral disturbance, psychotic disturbance, mood disturbance, and anxiety; J96.22 Acute and chronic respiratory failure with hypercapnia; E11.621 Type 2 diabetes mellitus with foot ulcer; L97.519 Non-pressure chronic ulcer of other part of right foot with unspecified severity; L89.890 Pressure ulcer of other site, unstageable; M24.569 Contracture, unspecified knee; I95.9 Hypotension, unspecified; E88.09 Other disorders of plasma-protein metabolism, not elsewhere classified; S91.112A Laceration without foreign body of left great toe without damage to nail, initial encounter; F09 Unspecified mental disorder due to known physiological condition; K56.7 Ileus, unspecified; K56.41 Fecal impaction; J98.11 Atelectasis; B37.49 Other urogenital candidiasis; I12.9 Hypertensive chronic kidney disease with stage 1 through stage 4 chronic kidney disease, or unspecified chronic kidney disease
CPT/HCPCS: 31720; 36415; 36600; 71045-TC; 74018; 74246-TC; 74250-TC; 76942-TC; 80048-TC; 80061-TC; 80076-TC; 80202-TC; 81000-TC; 82272-TC; 82803-TC; 82962-TC; 83540-TC; 83605-TC; 83735-TC; 83880; 84100-TC; 84443-TC; 84484-TC; 85025-TC; 85730-TC; 86850-TC; 86921-TC; 87040-TC; 87081-TC; 87086-TC; 87186-TC; 90732; 94002-TC; 94003-TC; 94760-TC; 94762-TC; 99082-TC; A4216; A4606; A6248; A6253; A6402; A6403; A7526; J1956; J2185; J2405; J2765; J2916; J3370; J3475; J3480; J3490; J7030; J7040; J7042; J7050; J7060; J8597; P9016-BL; Q2036; Q9963; Z7610